=== PATIENT | male | born 1985 | race Two or more races ===

== ENCOUNTER 2017-03-21 18:11 | Inpatient (IN) | payer OTHER ==
[~2017-03-21] VITALS: Ht 162.6 cm; Wt 91.8 kg
[~2017-03-21 18:11] MED LIST: AMLO10TA4 PO; AMOX1TAB61 PO; APIX5TAB PO; HYDR-2679 PO; METR500T8 PO; OMEP20CA9 PO; ONDA4TAB10 SL; OXYC-323 PO; PROP10TA PO; PROP150T2 PO
[2017-03-21] MEDS ORDERED: IV NORMAL SALINE 1000ML BAG 1,000 ML IV SCH (19:40)
[2017-03-21 19:55] LABS: BASO # 0.1 x10^3/uL (0.0-0.2); BASO % 0 % (0-3); EOS % 0 % (0-3); HEMATOCRIT 48.9 % (39.0-53.0); HEMOGLOBIN 17.1 g/dL (13.0-17.5); LYMPH # 1.5 x10^3/uL (1.0-4.8); LYMPH % 11 % (24-48); MEAN CORPUSCULAR HEMOGLOBIN 29 pg (25-35); MEAN CORPUSCULAR HGB CONC 35 g/dL (31-37); MEAN CORPUSCULAR VOLUME 84 fL (79-100); MONO % 3 % (0-9); NEUT % 85 % (31-73); PLATELET COUNT 235 x10^3/uL (140-400); RED BLOOD COUNT 5.81 x10^6/uL (4.30-5.70); RED CELL DISTRIBUTION WIDTH 12.2 % (11.5-14.5); WHITE BLOOD COUNT 13.1 x10^3/uL (4.0-11.0)
[2017-03-21] MEDS ORDERED: KETOROLAC TROMETHAMINE 30 MG/ML INJ. IV ONE (20:00)
[2017-03-21] MEDS ORDERED: ONDANSETRON PF 4 MG/2 ML VIAL. IV ONE (20:00)
[2017-03-21] MEDS ORDERED: PANTOPRAZOLE 40 MG TABLET.DR. PO ONE (20:00)
[2017-03-21] MEDS ORDERED: IV NORMAL SALINE 1000ML BAG 1,000 ML IV ONE ×2 (20:00→22:15)
--- NOTE | 2017-03-21 20:07 | PHYS DOC ---
Past Medical History Past Medical History: A-Fib, High Cholesterol, Hypertension, Other Additional Past Medical Histor: gastritis, ruptured colon Past Surgical History: Other Additional Past Surgical Histo: sigmoid colon removed, ileostomy reversal Alcohol Use: None Drug Use: None Adult General Chief Complaint Chief Complaint: ABDOMINAL PAIN HPI HPI 31-year-old male with a history of atrial fibrillation previously anticoagulated currently on aspirin only, also with a history of high blood pressure and high cholesterol, also with a history of a prior colon surgery with colostomy placement after surgical treatment for infection which was later reversed. Patient now presents to the emergency department complaining of epigastric burning which he has had previously and been diagnosed with gastritis. He reports some mild nausea. Pain is reproducible when he presses on his upper abdomen. Remainder of his abdomen does not hurt and he has no flank pain. Normal bowel and bladder habits. No blood in stool. States he has perceives some palpitations over the last day. Patient is only on aspirin for his history of atrial fibrillation. As far as patient knows he has not recently been in atrial fibrillation. Denies chest pain or shortness of breath. Review of Systems Review of Systems Constitutional: Denies fever or chills [] Eyes: Denies change in visual acuity, redness, or eye pain [] HENT: Denies nasal congestion or sore throat [] Respiratory: Denies cough or shortness of breath [] Cardiovascular: No additional information not addressed in HPI [] GI: Denies abdominal pain, nausea, vomiting, bloody stools or diarrhea [] : Denies dysuria or hematuria [] Musculoskeletal: Denies back pain or joint pain [] Integument: Denies rash or skin lesions [] Neurologic: Denies headache, focal weakness or sensory changes [] Endocrine: Denies polyuria or polydipsia [] Current Medications Current Medications Current Medications Medications (Trade) Dose Ordered Sig/Tanesha Start Time Stop Time Status Last Admin Dose Admin Info (Do NOT chart on this entry -- for MONITORING) 1 each PRN DAILY PRN 03/21/17 20:15 03/23/17 20:14 Iohexol (Omnipaque 300 Mg/ml) 75 ml 1X ONCE 03/21/17 20:15 03/21/17 20:16 DC 03/21/17 20:48 75 ML Ketorolac Tromethamine (Toradol) 30 mg 1X ONCE 03/21/17 20:00 8/21/17 20:03 DC 03/21/17 20:12 30 MG Lorazepam (Ativan) 1 mg 1X ONCE 03/21/17 20:15 03/21/17 20:16 DC 03/21/17 20:12 1 MG Ondansetron HCl (Zofran) 4 mg 1X ONCE 03/21/17 20:00 03/21/17 20:03 DC 03/21/17 20:11 4 MG Pantoprazole Sodium (Protonix) 40 mg 1X ONCE 03/21/17 20:00 03/21/17 20:03 DC 03/21/17 20:36 40 MG Sodium Chloride 1,000 ml @ 1,000 mls/hr 1X ONCE 03/21/17 22:15 03/21/17 23:14 DC 03/21/17 21:58 1,000 MLS/HR Allergies Allergies Allergies Coded Allergies Type Severity Reaction Last Updated Verified No Known Drug Allergies 09/18/15 No Physical Exam Physical Exam Well-appearing 31-year-old male in no acute distress. Clear lungs irregularly irregular rhythm with mild intermittent tachycardia. Heart rate varies from upper 90s to approximately 110 irregular as stated. Clear lungs. Normal bowel sounds. Mild epigastric tenderness without guarding or rebound. No right upper quadrant tenderness. No CVA tenderness. Remainder of exam is nondistended with no mass or megaly and no focal tenderness. Skin changes. Extremities benign Constitutional: Well developed, well nourished, no acute distress, non-toxic appearance. [] HENT: Normocephalic, atraumatic, bilateral external ears normal, oropharynx moist, no oral exudates, nose normal. [] Eyes: PERRLA, EOMI, conjunctiva normal, no discharge. [] Neck: Normal range of motion, no tenderness, supple, no stridor. [] Cardiovascular:Heart rate regular rhythm, no murmur [] Lungs & Thorax: Bilateral breath sounds clear to auscultation [] Abdomen: Bowel sounds normal, soft, exam as above no masses, no pulsatile masses. [] Skin: Warm, dry, no erythema, no rash. [] Back: No tenderness, no CVA tenderness. [] Extremities: No tenderness, no cyanosis, no clubbing, ROM intact, no edema. [] Neurologic: Alert and oriented X 3, normal motor function, normal sensory function, no focal deficits noted. [] Psychologic: Affect normal, judgement normal, mood normal. [] Current Patient Data Vital Signs Vital Signs Date Time Temp Pulse Resp B/P (MAP) Pulse Ox O2 Delivery O2 Flow Rate FiO2 03/21/17 22:00 90 130/84 (99) 93 Nasal Cannula 2.0 03/21/17 21:15 20 03/21/17 18:46 98.4 98.4 Lab Values Laboratory Tests Test 03/21/17 19:01 03/21/17 19:40 White Blood Count 13.1 x10^3/uL (4.0-11.0) H Red Blood Count 5.81 x10^6/uL (4.30-5.70) H Hemoglobin 17.1 g/dL (13.0-17.5) Hematocrit 48.9 % (39.0-53.0) Mean Corpuscular Volume 84 fL (79-100) Mean Corpuscular Hemoglobin 29 pg (25-35) Mean Corpuscular Hemoglobin Concent 35 g/dL (31-37) Red Cell Distribution Width 12.2 % (11.5-14.5) Platelet Count 235 x10^3/uL (140-400) Neutrophils (%) (Auto) 85 % (31-73) H Lymphocytes (%) (Auto) 11 % (24-48) L Monocytes (%) (Auto) 3 % (0-9) Eosinophils (%) (Auto) 0 % (0-3) Basophils (%) (Auto) 0 % (0-3) Neutrophils # (Auto) 11.1 x10^3uL (1.8-7.7) H Lymphocytes # (Auto) 1.5 x10^3/uL (1.0-4.8) Monocytes # (Auto) 0.5 x10^3/uL (0.0-1.1) Eosinophils # (Auto) 0.0 x10^3/uL (0.0-0.7) Basophils # (Auto) 0.1 x10^3/uL (0.0-0.2) Sodium Level 141 mmol/L (136-145) Potassium Level 4.0 mmol/L (3.5-5.1) Chloride Level 103 mmol/L (98-107) Carbon Dioxide Level 26 mmol/L (21-32) Anion Gap 12 (6-14) Blood Urea Nitrogen 7 mg/dL (8-26) L Creatinine 0.9 mg/dL (0.7-1.3) Estimated GFR (Cockcroft-Gault) 97.2 BUN/Creatinine Ratio 8 (6-20) Glucose Level 148 mg/dL (70-99) H Calcium Level 9.6 mg/dL (8.5-10.1) Total Bilirubin 0.8 mg/dL (0.2-1.0) Aspartate Amino Transferase (AST) 24 U/L (15-37) Alanine Aminotransferase (ALT) 39 U/L (16-63) Alkaline Phosphatase 90 U/L (46-116) Troponin I Quantitative < 0.017 ng/mL (0.000-0.055) Total Protein 8.5 g/dL (6.4-8.2) H Albumin 4.3 g/dL (3.4-5.0) Albumin/Globulin Ratio 1.0 (1.0-1.7) Lipase 267 U/L (73-393) Urine Collection Type Unknown Urine Color Yellow Urine Clarity Clear Urine pH 6.5 Urine Specific [place] >=1.030 Urine Protein 30 mg/dL (NEG-TRACE) Urine Glucose (UA) Negative mg/dL (NEG) Urine Ketones (Stick) Negative mg/dL (NEG) Urine Blood Negative (NEG) Urine Nitrite Negative (NEG) Urine Bilirubin Negative (NEG) Urine Urobilinogen Dipstick 0.2 mg/dL (0.2 mg/dL) Urine Leukocyte Esterase Negative (NEG) Urine RBC 0 /HPF (0-2) Urine WBC Occ /HPF (0-4) Urine Squamous Epithelial Cells Few /LPF Urine Bacteria 0 /HPF (0-FEW) Urine Mucus Mod /LPF Laboratory Tests 03/21/17 19:01 Laboratory Tests 03/21/17 19:01 EKG EKG Atrial fibrillation with ventricular rate at 91. Left axis deviation nonspecific ST and T-wave findings. No STEMI. Interpreted by me. [] Radiology/Procedures Radiology/Procedures [] Course & Med Decision Making Course & Med Decision Making Pertinent Labs and Imaging studies reviewed. (See chart for details) Patient with recurrence of A. fib with known history of atrial fibrillation. Signs and symptoms consistent with manifestations of gastritis and known history for this patient as well. Clinical findings not just of of surgical abdomen on exam. Full workup pending including labs and CT as well as cardiac workup. IV fluids Toradol and Zofran administered. We'll follow clinically field lab and radiologic results and correlate clinically for disposition. She clinically stable after treatment. CT with suggestion of bowel obstruction. Patient with no active vomiting and pain well controlled. Blood cell count mildly elevated at 13.1. Discussed with admitting physician is aware of history and findings and agrees with inpatient admission. Vital signs stable Patient with recurrence of atrial fibrillation without significant RVR. Admitting M.D. aware and will address further workup, consultation, and treatment as needed. Dragon Disclaimer Dragon Disclaimer This electronic medical record was generated, in whole or in part, using a voice recognition dictation system. Departure Departure Impression: Primary Impression: Abdominal pain Additional Impressions: Paroxysmal atrial fibrillation Gastritis Referrals: NO PCP (PCP) Problem Qualifiers LIDIA PEREZ MD Mar 21, 2017 20:07
[2017-03-21 20:11] LABS: CALCIUM 9.6 mg/dL (8.5-10.1); CREATININE 0.9 mg/dL (0.7-1.3); GFR 97.2
[2017-03-21] MEDS ORDERED: CONTRAST GIVEN MC PRN (20:15)
[2017-03-21] MEDS ORDERED: IOHEXOL 300 MG/ML 75 ML VIAL IV ONE (20:15)
[2017-03-21 20:24] LABS: ALBUMIN 4.3 g/dL (3.4-5.0); TOTAL BILIRUBIN 0.8 mg/dL (0.2-1.0); TOTAL PROTEIN 8.5 g/dL (6.4-8.2)
--- NOTE | 2017-03-21 21:15 | RAD ---
Indication: Abdominal pain. Technique: Axial images and coronal and sagittal reformatted images are provided. 60 mL of intravenous Omnipaque 300 was administered without complication. Comparison is from November 23, 2015. One or more of the following individualized dose reduction techniques were utilized for this examination: 1. Automated exposure control 2. Adjustment of the mA and/or kV according to patient size 3. Use of iterative reconstruction technique Findings: There is dependent atelectasis. There is no pleural effusion. The heart is not enlarged. Liver is unremarkable. 4 mm hyperdensity within the gallbladder lumen could represent small stone or polyp. Spleen is not enlarged. Pancreas and adrenals are unremarkable. Kidneys are symmetrically perfused. Aorta is normal caliber. Lack of oral contrast limits evaluation of bowel. There is a dilated bowel loop noted near the anastomotic suture line with small bowel feces sign. This loop measures up to 4 cm in diameter. Normal appendix is noted. Colon is grossly unremarkable. Mesenteric soft tissue density noted on prior study near the anastomotic suture line has resolved. Bladder is unremarkable. Prostate is not enlarged. Bony structures appear intact. IMPRESSION: Dilated small bowel loop at the anastomotic suture line may be related to obstruction at the anastomosis. Presence of fecal material within this dilated small bowel loop is compatible with stasis. Electronically signed by: Corbin Fermin MD (03/21/2017 9:12 PM) [facility]
[2017-03-21 21:23] LABS: BILIRUBIN,URINE NEGATIVE (NEG); GLUCOSE,URINE NEGATIVE (NEG); NITRITE,URINE NEGATIVE (NEG); PH,URINE 6.5; PROTEIN,URINE 30 mg/dL (NEG-TRACE); UROBILINOGEN,URINE 0.2 mg/dL (0.2 mg/dL)
[2017-03-21 21:47] LABS: BACTERIA,URINE 0 /HPF (0-FEW); RBC,URINE 0 /HPF (0-2); SQUAMOUS EPITHELIAL CELL,UR FEW /LPF; WBC,URINE OCC /HPF (0-4)
[2017-03-21 23:20] VITALS: BP 150/98
[2017-03-22] MEDS ORDERED: MORPHINE SULFATE 4 MG/ML DISP.SYRIN. IV PRN
[2017-03-22] MEDS ORDERED: ONDANSETRON PF 4 MG/2 ML VIAL. IV PRN
[2017-03-22] MEDS: HYDROcodone/APAP 5/325MG 1 TAB TABLET PO PRN ×6 (00:05→23:26)
--- NOTE | 2017-03-22 01:28 | ACF ---
Admission Forms Criteria ABDOMINAL PAIN Clinical Indications for Admission to Inpatient Care ( te-moak/check or initial the applicable condition/criteria): Admission is indicated for ANY ONE of the following (1)(2)(3)(4)(5)(6): [ ]I. Surgery needed that cannot be performed on ambulatory basis [ ]II. Peritoneal signs present (eg, rebound tenderness, rigidity) [ ]III. Evaluation requires patient to not eat or drink for extended period ( eg, more than 24 hours). [X]IV. Inpatient admission required[B] rather than observation care (see Abdominal Pain: Observation Care guideline as appropriate) because of ANY ONE of the following(7)(8)(9): [ ] a) Hemodynamic instability [ ]b) Severe pain requiring acute inpatient management [X]c) Identification of etiology or finding that requires inpatient care (eg, aortic dissection, free air,bowel ischemia)(10) [ ]d) Absent bowel sounds with complete ileus (11) [ ]e) Signs of intestinal obstruction[C] [ ]f) Suspected toxic megacolon [ ]g) Severe electrolyte abnormalities requiring inpatient care [ ]h) High fever or infection requiring inpatient admission as indicated by ANY ONE of the following (12)(13): [ ]i) Appropriate outpatient or observation care antimicrobial treatment unavailable, not effective, or not feasible [ ]ii) Documented bacteremia [ ]iii) Temperature greater than 104.9 degrees F (40.5 degrees C) (oral) [ ]iv) Temperature greater than 103.1 degrees F (39.5 degrees C) ( oral) or less than 96.8 degrees F (36 degrees C) (rectal) that does not respond to all emergency treatment measures [ ]i) IV fluid required rather than oral rehydration to replace significant ongoing (eg, for greater than 24 hours) losses (greater than 3 L/m2 per day)(14)(15) [ ]j) Percutaneous or open drainage (eg, abscess, biliary tract) procedures [ ]k) Parenteral nutrition regimen that must be implemented on inpatient basis [ ]l) Other condition, treatment, or monitoring requiring inpatient admission Extended stay beyond goal length of stay may be needed for (1)(3)(4)(10)(16): [ ]a) Surgery (e.g., colectomy, revascularization procedure) [ ]b) Persistent abdominal pain with suspected intra-abdominal process [ ]c) Diagnosed condition requiring continued stay (e.g., pancreatitis, complicated diverticulitis) The original [facility] content created by [facility] has been revised. The portions of the content which have been revised are identified through the use of italic text, and [facility] has neither reviewed nor approved the modified material.All other unmodified content is copyright [facility]. Please see references footnoted in the original [facility] edition 2015 Admission Criteria Met?: Yes ALFREDO YANES Mar 22, 2017 01:28
[2017-03-22 03:35] VITALS: BP 134/85
[2017-03-22] MEDS ORDERED: [no home meds] (06:25)
[2017-03-22 07:15] VITALS: BP 139/97
--- NOTE | 2017-03-22 07:42 | RAD ---
Exam performed: One view chest. Indication: palpitations, epigastric pain Date of Service: 03/21/2017 9:52 PM Comparison: Single view chest as part of acute abdominal series from 11/23/15 Single AP upright portable view chest findings: Cardiomediastinal silhouette is within upper limits of normal. No acute infiltrates, effusion or pneumothorax is detected. The bony structures are normal. Impression: No acute cardiopulmonary process is detected.
--- NOTE | 2017-03-22 08:44 | EKG ---
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
[2017-03-22] MEDS ORDERED: LOPERAMIDE 2 MG CAPSULE PO PRN (09:00)
--- NOTE | 2017-03-22 10:17 | PDOC2 ---
GI CONSULT Reason For Consult: SBO HPI: HPI: 31 y/o male w/ a variety of GI symptoms. Woke up yesterday not feeling right. Had a few formed stools throughout the day, took Pepto and left work early. N/ v w/ epigastric/RUQ discomfort. "It feels like hollow pain - like gastritis." Similar ?intermittent obstructive symptoms in the past, h/o sigmoid perforation w. resection and loop ileostomy/reversal (Dr. Barros), previous colonoscopy by Dr. Das. Taking a hot bath/shower helps. Says rarely uses, but marijuana also helps. No previous EGD, only occasional heartburn. No regular NSAID use. Labs unrevealing. CT A/P w/ dilated small bowel loop at the anastomotic suture line and presence of fecal material within. Feeling a little better this morning, tolerating clears and passing gas. PMH: PMH: A Fib, HTN, HLD, diverticular disease w/ sigmoid perforation w/ resection and loop ileostomy/reversal FH: Family History: No pertinent hx Social History: Smoke: No ALCOHOL: none Drugs: Marijuana, Other ROS: GEN: Denies fevers, chills, sweats HEENT: Denies blurred vision, sore throat CV: Denies chest pain RESP: Denies shortness of air, cough GI: Per HPI : Denies hematuria, dysuria ENDO: Denies weight changes NEURO: Denies confusion, dizziness MSK: Denies weakness, joint pain/swelling SKIN: Denies jaundice, pruritus Vitals: Vitals: Vital Signs Date Time Temp Pulse Resp B/P (MAP) Pulse Ox O2 Delivery O2 Flow Rate FiO2 03/22/17 09:30 98 Room Air 2.0 03/22/17 07:15 98.0 76 20 139/97 (111) 98.0 Labs: Labs: Laboratory Tests Test 03/21/17 19:01 03/21/17 19:40 White Blood Count 13.1 x10^3/uL (4.0-11.0) Red Blood Count 5.81 x10^6/uL (4.30-5.70) Hemoglobin 17.1 g/dL (13.0-17.5) Hematocrit 48.9 % (39.0-53.0) Mean Corpuscular Volume 84 fL (79-100) Mean Corpuscular Hemoglobin 29 pg (25-35) Mean Corpuscular Hemoglobin Concent 35 g/dL (31-37) Red Cell Distribution Width 12.2 % (11.5-14.5) Platelet Count 235 x10^3/uL (140-400) Neutrophils (%) (Auto) 85 % (31-73) Lymphocytes (%) (Auto) 11 % (24-48) Monocytes (%) (Auto) 3 % (0-9) Eosinophils (%) (Auto) 0 % (0-3) Basophils (%) (Auto) 0 % (0-3) Neutrophils # (Auto) 11.1 x10^3uL (1.8-7.7) Lymphocytes # (Auto) 1.5 x10^3/uL (1.0-4.8) Monocytes # (Auto) 0.5 x10^3/uL (0.0-1.1) Eosinophils # (Auto) 0.0 x10^3/uL (0.0-0.7) Basophils # (Auto) 0.1 x10^3/uL (0.0-0.2) Sodium Level 141 mmol/L (136-145) Potassium Level 4.0 mmol/L (3.5-5.1) Chloride Level 103 mmol/L (98-107) Carbon Dioxide Level 26 mmol/L (21-32) Anion Gap 12 (6-14) Blood Urea Nitrogen 7 mg/dL (8-26) Creatinine 0.9 mg/dL (0.7-1.3) Estimated GFR (Cockcroft-Gault) 97.2 BUN/Creatinine Ratio 8 (6-20) Glucose Level 148 mg/dL (70-99) Calcium Level 9.6 mg/dL (8.5-10.1) Total Bilirubin 0.8 mg/dL (0.2-1.0) Aspartate Amino Transf (AST/SGOT) 24 U/L (15-37) Alanine Aminotransferase (ALT/SGPT) 39 U/L (16-63) Alkaline Phosphatase 90 U/L (46-116) Troponin I Quantitative < 0.017 ng/mL (0.000-0.055) Total Protein 8.5 g/dL (6.4-8.2) Albumin 4.3 g/dL (3.4-5.0) Albumin/Globulin Ratio 1.0 (1.0-1.7) Lipase 267 U/L (73-393) Urine Collection Type Unknown Urine Color Yellow Urine Clarity Clear Urine pH 6.5 Urine Specific [place] >=1.030 Urine Protein 30 mg/dL (NEG-TRACE) Urine Glucose (UA) Negative mg/dL (NEG) Urine Ketones (Stick) Negative mg/dL (NEG) Urine Blood Negative (NEG) Urine Nitrite Negative (NEG) Urine Bilirubin Negative (NEG) Urine Urobilinogen Dipstick 0.2 mg/dL (0.2 mg/dL) Urine Leukocyte Esterase Negative (NEG) Urine RBC 0 /HPF (0-2) Urine WBC Occ /HPF (0-4) Urine Squamous Epithelial Cells Few /LPF Urine Bacteria 0 /HPF (0-FEW) Urine Mucus Mod /LPF Allergies: Coded Allergies: No Known Drug Allergies (Unverified , 09/18/15) Medications: Current Medications Medications (Trade) Dose Ordered Sig/Tanesha Route PRN Reason Start Time Stop Time Status Last Admin Dose Admin Sodium Chloride 1,000 ml @ 0 mls/hr Q10H IV 03/21/17 19:40 03/21/17 19:59 DC 03/21/17 19:59 Ketorolac Tromethamine (Toradol) 30 mg 1X ONCE IV 03/21/17 20:00 03/21/17 20:03 DC 03/21/17 20:12 Ondansetron HCl (Zofran) 4 mg 1X ONCE IV 03/21/17 20:00 03/21/17 20:03 DC 03/21/17 20:11 Pantoprazole Sodium (Protonix) 40 mg 1X ONCE PO 03/21/17 20:00 03/21/17 20:03 DC 03/21/17 20:36 Sodium Chloride 1,000 ml @ 0 mls/hr 1X ONCE IV 03/21/17 20:00 03/21/17 20:03 DC 03/21/17 20:00 Iohexol (Omnipaque 300 Mg/ml) 75 ml 1X ONCE IV 03/21/17 20:15 03/21/17 20:16 DC 03/21/17 20:48 Lorazepam (Ativan) 1 mg 1X ONCE IV 03/21/17 20:15 03/21/17 20:16 DC 03/21/17 20:12 Sodium Chloride 1,000 ml @ 1,000 mls/hr 1X ONCE IV 03/21/17 22:15 03/21/17 23:14 DC 03/21/17 21:58 Acetaminophen/ Hydrocodone Bitart (Lortab 5/325) 1 tab PRN Q4HRS PRN PO MODERATE PAIN 03/22/17 00:00 03/22/17 04:08 Ondansetron HCl (Zofran) 4 mg PRN Q6HRS PRN IV NAUSEA/VOMITING 03/22/17 00:00 03/22/17 04:12 Morphine Sulfate 2 mg PRN Q2HR PRN IV SEVERE PAIN 03/22/17 00:00 03/22/17 08:45 Imaging: Imaging: CT A/P w/ IV contrast 03/21/17 IMPRESSION: Dilated small bowel loop at the anastomotic suture line may be related to obstruction at the anastomosis. Presence of fecal material within this dilated small bowel loop is compatible with stasis. CXR 03/21/17 Impression: No acute cardiopulmonary process is detected. SBS 10/04/15 Impression: No definite abnormality seen in the Barium meal follow through exam. PE: GEN: NAD HEENT: Atraumatic, PERRL LUNGS: CTAB anteriorly HEART: irregularly irregular ABD: +loud BS, S/ND, perhaps mild epigastric discomfort EXTREMITY: No edema SKIN: No rashes, no jaundice NEURO/PSYCH: A & O 3 A/P: A/P: Upper abd discomfort, n/v, change in bowel habits H/o sigmoid resection w/ ileostomy/takedown Abnormal CT -dilated small bowel loop at the anastomotic suture line and presence of fecal material within -- Reviewed w/ Dr. Das, check SBS. Empiric PPI. Will review office records. JAYLAN JOHN Mar 22, 2017 10:17
[2017-03-22] MEDS ORDERED: BARIUM SULFATE 60% 355 ML SUSP PO ONE (10:30)
--- NOTE | 2017-03-22 10:42 | PDOC1 ---
History and Physical Date of Admission Date of Admission DATE: 03/22/17 TIME: 10:34 Identification/Chief Complaint Chief Complaint abd pain Problems: Source Source: Caregiver, Chart review, Patient History of Present Illness History of Present Illness 31 y.o male with hx of bowel obstruction yrs ago, needed ex lap by GS and ostomy which has been taken down yrs ago, comes in bec of severe abd pain he claims, epigastric some looses stools, no real emesis but had nausea, no fevers , no recent travel, denies recent sick contacts with similar sxs or recent intake of suspicious foods, CTa bd shows maybe partial SBO? but could be related to his abd sx in past. Pt actually is non toxic, belly soft, eager to try more food, WBC barely up, GI has seen for small bowel series, Also hx atrial fib, Dr. Rissa was his cards, was taken off expensive OAC bec he did not need it, NOw atrial fib but rate controlled, denies sxs,. NOt on any home meds prior to admit, VS ok Stool onCT - he claims he moved already his bowels Past Medical History Cardiovascular: AFIB, HTN, Hyperlipidemia Pulmonary: Other Past Surgical History Past Surgical History: Colon Resection, Other Family History Family History: Hypertension Social History Smoke: No ALCOHOL: none Drugs: Marijuana, Other Current Problem List Problem List Problems Medical Problems: (1) Abdominal pain Status: Acute (2) Gastritis Status: Acute (3) Paroxysmal atrial fibrillation Status: Acute Problems: Current Medications Current Medications Current Medications Sodium Chloride 1,000 ml @ 0 mls/hr Q10H IV Last administered on 03/21/17 19: 59; Start 03/21/17 at 19:40; Stop 03/21/17 at 19:59; Status DC Ketorolac Tromethamine (Toradol) 30 mg 1X ONCE IV Last administered on 20:12; Start 03/21/17 at 20:00; Stop 03/21/17 at 20:03; Status DC Ondansetron HCl (Zofran) 4 mg 1X ONCE IV Last administered on 03/21/17 20:11 ; Start 03/21/17 at 20:00; Stop 03/21/17 at 20:03; Status DC Pantoprazole Sodium (Protonix) 40 mg 1X ONCE PO Last administered on 20:36; Start 03/21/17 at 20:00; Stop 03/21/17 at 20:03; Status DC Sodium Chloride 1,000 ml @ 0 mls/hr 1X ONCE IV Last administered on 20:00; Start 03/21/17 at 20:00; Stop 03/21/17 at 20:03; Status DC Iohexol (Omnipaque 300 Mg/ml) 75 ml 1X ONCE IV Last administered on 03/21/17 20:48; Start 03/21/17 at 20:15; Stop 03/21/17 at 20:16; Status DC Lorazepam (Ativan) 1 mg 1X ONCE IV Last administered on 03/21/17 20:12; Start 03/21/17 at 20:15; Stop 03/21/17 at 20:16; Status DC Info (Do NOT chart on this entry -- for MONITORING) 1 each PRN DAILY PRN MC SEE COMMENTS; Start 03/21/17 at 20:15; Stop 03/23/17 at 20:14 Sodium Chloride 1,000 ml @ 1,000 mls/hr 1X ONCE IV Last administered on 21:58; Start 03/21/17 at 22:15; Stop 03/21/17 at 23:14; Status DC Acetaminophen/ Hydrocodone Bitart (Lortab 5/325) 1 tab PRN Q4HRS PRN PO MODERATE PAIN Last administered on 03/22/17 04:08; Start 03/22/17 at 00:00 Ondansetron HCl (Zofran) 4 mg PRN Q6HRS PRN IV NAUSEA/VOMITING Last administered on 03/22/17 04:12; Start 03/22/17 at 00:00 Morphine Sulfate 2 mg PRN Q2HR PRN IV SEVERE PAIN Last administered on 08:45; Start 03/22/17 at 00:00 Loperamide HCl (Imodium) 2 mg PRN Q15MIN PRN PO DIARRHEA; Start 03/22/17 at 09: 00 Pantoprazole Sodium (Protonix) 40 mg DAILYAC PO ; Start 03/23/17 at 07:30 Barium Sulfate (Liquid E-Z Paque) 710 ml 1X ONCE PO ; Start 03/22/17 at 10:30; Stop 03/22/17 at 10:31; Status DC Active Scripts Active Reported [[no home meds]] Allergies Allergies: Coded Allergies: No Known Drug Allergies (Unverified , 09/18/15) ROS Review of System as per HPI, all else is neg 14 pt reviewed Physical Exam General: Alert, Oriented X3, Cooperative, No acute distress HEENT: Atraumatic Lungs: Clear to auscultation Heart: S1S2, RRR, no thrills, no rubs, no gallops, no murmurs Cardiovascular: S1, S2 Abdomen: Normal bowel sounds, Soft, No tenderness, No hepatosplenomegaly, No masses Male Genitals Exam: normal genitalia, normal prostate Rectal Exam: not examined Extremities: No clubbing, No cyanosis, No edema, Normal pulses, No tenderness/ swelling Skin: No rashes, No breakdown, No significant lesion Neuro: Normal gait, Normal speech, Strength at 5/5 X4 ext, Normal tone, Sensation intact, Cranial nerves 3-12 NL, Reflexes 2+ Psych/Mental Status: Mental status NL, Mood NL Vitals Vitals Vital Signs Date Time Temp Pulse Resp B/P (MAP) Pulse Ox O2 Delivery O2 Flow Rate FiO2 03/22/17 09:30 98 Room Air 2.0 03/22/17 07:15 98.0 76 20 139/97 (111) 98.0 Labs Labs Laboratory Tests Test 03/21/17 19:01 03/21/17 19:40 White Blood Count 13.1 x10^3/uL (4.0-11.0) Red Blood Count 5.81 x10^6/uL (4.30-5.70) Hemoglobin 17.1 g/dL (13.0-17.5) Hematocrit 48.9 % (39.0-53.0) Mean Corpuscular Volume 84 fL (79-100) Mean Corpuscular Hemoglobin 29 pg (25-35) Mean Corpuscular Hemoglobin Concent 35 g/dL (31-37) Red Cell Distribution Width 12.2 % (11.5-14.5) Platelet Count 235 x10^3/uL (140-400) Neutrophils (%) (Auto) 85 % (31-73) Lymphocytes (%) (Auto) 11 % (24-48) Monocytes (%) (Auto) 3 % (0-9) Eosinophils (%) (Auto) 0 % (0-3) Basophils (%) (Auto) 0 % (0-3) Neutrophils # (Auto) 11.1 x10^3uL (1.8-7.7) Lymphocytes # (Auto) 1.5 x10^3/uL (1.0-4.8) Monocytes # (Auto) 0.5 x10^3/uL (0.0-1.1) Eosinophils # (Auto) 0.0 x10^3/uL (0.0-0.7) Basophils # (Auto) 0.1 x10^3/uL (0.0-0.2) Sodium Level 141 mmol/L (136-145) Potassium Level 4.0 mmol/L (3.5-5.1) Chloride Level 103 mmol/L (98-107) Carbon Dioxide Level 26 mmol/L (21-32) Anion Gap 12 (6-14) Blood Urea Nitrogen 7 mg/dL (8-26) Creatinine 0.9 mg/dL (0.7-1.3) Estimated GFR (Cockcroft-Gault) 97.2 BUN/Creatinine Ratio 8 (6-20) Glucose Level 148 mg/dL (70-99) Calcium Level 9.6 mg/dL (8.5-10.1) Total Bilirubin 0.8 mg/dL (0.2-1.0) Aspartate Amino Transf (AST/SGOT) 24 U/L (15-37) Alanine Aminotransferase (ALT/SGPT) 39 U/L (16-63) Alkaline Phosphatase 90 U/L (46-116) Troponin I Quantitative < 0.017 ng/mL (0.000-0.055) Total Protein 8.5 g/dL (6.4-8.2) Albumin 4.3 g/dL (3.4-5.0) Albumin/Globulin Ratio 1.0 (1.0-1.7) Lipase 267 U/L (73-393) Urine Collection Type Unknown Urine Color Yellow Urine Clarity Clear Urine pH 6.5 Urine Specific [place] >=1.030 Urine Protein 30 mg/dL (NEG-TRACE) Urine Glucose (UA) Negative mg/dL (NEG) Urine Ketones (Stick) Negative mg/dL (NEG) Urine Blood Negative (NEG) Urine Nitrite Negative (NEG) Urine Bilirubin Negative (NEG) Urine Urobilinogen Dipstick 0.2 mg/dL (0.2 mg/dL) Urine Leukocyte Esterase Negative (NEG) Urine RBC 0 /HPF (0-2) Urine WBC Occ /HPF (0-4) Urine Squamous Epithelial Cells Few /LPF Urine Bacteria 0 /HPF (0-FEW) Urine Mucus Mod /LPF Laboratory Tests Test 03/21/17 19:01 03/21/17 19:40 White Blood Count 13.1 x10^3/uL (4.0-11.0) Red Blood Count 5.81 x10^6/uL (4.30-5.70) Hemoglobin 17.1 g/dL (13.0-17.5) Hematocrit 48.9 % (39.0-53.0) Mean Corpuscular Volume 84 fL (79-100) Mean Corpuscular Hemoglobin 29 pg (25-35) Mean Corpuscular Hemoglobin Concent 35 g/dL (31-37) Red Cell Distribution Width 12.2 % (11.5-14.5) Platelet Count 235 x10^3/uL (140-400) Neutrophils (%) (Auto) 85 % (31-73) Lymphocytes (%) (Auto) 11 % (24-48) Monocytes (%) (Auto) 3 % (0-9) Eosinophils (%) (Auto) 0 % (0-3) Basophils (%) (Auto) 0 % (0-3) Neutrophils # (Auto) 11.1 x10^3uL (1.8-7.7) Lymphocytes # (Auto) 1.5 x10^3/uL (1.0-4.8) Monocytes # (Auto) 0.5 x10^3/uL (0.0-1.1) Eosinophils # (Auto) 0.0 x10^3/uL (0.0-0.7) Basophils # (Auto) 0.1 x10^3/uL (0.0-0.2) Sodium Level 141 mmol/L (136-145) Potassium Level 4.0 mmol/L (3.5-5.1) Chloride Level 103 mmol/L (98-107) Carbon Dioxide Level 26 mmol/L (21-32) Anion Gap 12 (6-14) Blood Urea Nitrogen 7 mg/dL (8-26) Creatinine 0.9 mg/dL (0.7-1.3) Estimated GFR (Cockcroft-Gault) 97.2 BUN/Creatinine Ratio 8 (6-20) Glucose Level 148 mg/dL (70-99) Calcium Level 9.6 mg/dL (8.5-10.1) Total Bilirubin 0.8 mg/dL (0.2-1.0) Aspartate Amino Transf (AST/SGOT) 24 U/L (15-37) Alanine Aminotransferase (ALT/SGPT) 39 U/L (16-63) Alkaline Phosphatase 90 U/L (46-116) Troponin I Quantitative < 0.017 ng/mL (0.000-0.055) Total Protein 8.5 g/dL (6.4-8.2) Albumin 4.3 g/dL (3.4-5.0) Albumin/Globulin Ratio 1.0 (1.0-1.7) Lipase 267 U/L (73-393) Urine Collection Type Unknown Urine Color Yellow Urine Clarity Clear Urine pH 6.5 Urine Specific [place] >=1.030 Urine Protein 30 mg/dL (NEG-TRACE) Urine Glucose (UA) Negative mg/dL (NEG) Urine Ketones (Stick) Negative mg/dL (NEG) Urine Blood Negative (NEG) Urine Nitrite Negative (NEG) Urine Bilirubin Negative (NEG) Urine Urobilinogen Dipstick 0.2 mg/dL (0.2 mg/dL) Urine Leukocyte Esterase Negative (NEG) Urine RBC 0 /HPF (0-2) Urine WBC Occ /HPF (0-4) Urine Squamous Epithelial Cells Few /LPF Urine Bacteria 0 /HPF (0-FEW) Urine Mucus Mod /LPF VTE Prophylaxis Ordered VTE Prophylaxis Devices: Yes VTE Pharmacological Prophylaxi: Yes Assessment/Plan Assessment/Plan 1. Abd pain likely GAstroenteritis, non toxic appearing, labs not impressive - await small bowel series, otherwise can ADAT 2. Intermittent Atrial fib MVR - consult cards, may check TSH, did explain sometimes that even gastritis can push someone to atrial fib, so fa rate is controlled 3. Narc seeking behavior 4. Distant hx exlap with ostomy - all taken down 5. COnstipation resolved PLAN; admit Small bowel series ADAT PAin control Consult cards re atrial fib, GI also has been consulted MAy check TSH Vivek RN PAN Meza MD Mar 22, 2017 10:42
[2017-03-22 11:10] VITALS: BP 144/97
--- NOTE | 2017-03-22 11:27 | PDOC2 ---
AMAURI VICENTE [employer] 03/22/17 1127: CONSULT Date of Consult Date of Consult DATE: 03/22/17 TIME: 11:13 Reason for Consult Reason for Consult: sbo Referring Physician Referring Physician: Dr Pettit Identification/Chief Complaint Chief Complaint abdominal pain Problems: Source Source: Chart review, Patient History of Present Illness Reason for Visit: Acute onset of epigastric pain yesterday am. Worsened after he ate his breakfast. It persisted in the afternoon and he came in for evaluation. Associated nausea and emesis. He did have a BM yesterday. He is passing gas today. Does feel better He is a previous patient of Dr Polo that underwent a sigmoid resection, ileostomy and reversal in [id number]. After his surgeries he had admissions similar to this, although never had any obstructions. I did review previous CTs and there was similar findings of small bowel dilation at the anastomosis. GI has seen and is planning SBFT today. He does have history of marijuana, history of drinking, although reports no alcohol use now. Past Medical History Cardiovascular: AFIB, HTN, Hyperlipidemia Pulmonary: Other Past Surgical History Past Surgical History: Colon Resection, Other Family History Family History: Hypertension Social History No ALCOHOL: other (denies currently, although previous records indicate use) Drugs: Marijuana, Other Lives: with Family Current Problem List Problem List Problems Medical Problems: (1) Abdominal pain Status: Acute (2) Gastritis Status: Acute (3) Paroxysmal atrial fibrillation Status: Acute Current Medications Current Medications Current Medications Sodium Chloride 1,000 ml @ 0 mls/hr Q10H IV Last administered on 03/21/17 19: 59; Start 03/21/17 at 19:40; Stop 03/21/17 at 19:59; Status DC Ketorolac Tromethamine (Toradol) 30 mg 1X ONCE IV Last administered on 20:12; Start 03/21/17 at 20:00; Stop 03/21/17 at 20:03; Status DC Ondansetron HCl (Zofran) 4 mg 1X ONCE IV Last administered on 03/21/17 20:11 ; Start 03/21/17 at 20:00; Stop 03/21/17 at 20:03; Status DC Pantoprazole Sodium (Protonix) 40 mg 1X ONCE PO Last administered on 20:36; Start 03/21/17 at 20:00; Stop 03/21/17 at 20:03; Status DC Sodium Chloride 1,000 ml @ 0 mls/hr 1X ONCE IV Last administered on 20:00; Start 03/21/17 at 20:00; Stop 03/21/17 at 20:03; Status DC Iohexol (Omnipaque 300 Mg/ml) 75 ml 1X ONCE IV Last administered on 03/21/17 20:48; Start 03/21/17 at 20:15; Stop 03/21/17 at 20:16; Status DC Lorazepam (Ativan) 1 mg 1X ONCE IV Last administered on 03/21/17 20:12; Start 03/21/17 at 20:15; Stop 03/21/17 at 20:16; Status DC Info (Do NOT chart on this entry -- for MONITORING) 1 each PRN DAILY PRN MC SEE COMMENTS; Start 03/21/17 at 20:15; Stop 03/23/17 at 20:14 Sodium Chloride 1,000 ml @ 1,000 mls/hr 1X ONCE IV Last administered on 21:58; Start 03/21/17 at 22:15; Stop 03/21/17 at 23:14; Status DC Acetaminophen/ Hydrocodone Bitart (Lortab 5/325) 1 tab PRN Q4HRS PRN PO MODERATE PAIN Last administered on 03/22/17 10:36; Start 03/22/17 at 00:00 Ondansetron HCl (Zofran) 4 mg PRN Q6HRS PRN IV NAUSEA/VOMITING Last administered on 03/22/17 04:12; Start 03/22/17 at 00:00 Morphine Sulfate 2 mg PRN Q2HR PRN IV SEVERE PAIN Last administered on 08:45; Start 03/22/17 at 00:00 Loperamide HCl (Imodium) 2 mg PRN Q15MIN PRN PO DIARRHEA; Start 03/22/17 at 09: 00 Pantoprazole Sodium (Protonix) 40 mg DAILYAC PO ; Start 03/23/17 at 07:30 Barium Sulfate (Liquid E-Z Paque) 710 ml 1X ONCE PO ; Start 03/22/17 at 10:30; Stop 03/22/17 at 10:31; Status DC Active Scripts Active Reported [[no home meds]] Allergies Allergies: Coded Allergies: No Known Drug Allergies (Unverified , 09/18/15) ROS General: YES: Chills, Appetite (low), No: Other (fevers) PSYCHOLOGICAL ROS: No: Anxiety, Depression Eyes: No Blurry vision, No Double vision HEENT: No: Heacaches, Sore Throat Hematological and Lymphatic: No: Bleeding Problems, Blood Clots Respiratory: No: Cough, Shortness of breath Cardiovascular: No Chest Pain, No Palpitations Gastrointestinal: Yes Other (see hpi) Genitourinary: No Dysuria, No Hematuria Musculoskeletal: No Joint Pain, No Muscle Pain Neurological: No Confusion, No Numbness/Tingling Skin: No Pruritus, No Rash Physical Exam General: Alert, Oriented X3, Cooperative, No acute distress HEENT: PERRLA, Mucous membr. moist/pink Lungs: Clear to auscultation, Normal air movement Heart: Regular rate, Normal S1, Normal S2, No murmurs Abdomen: Soft, Other (ND, epigastric tenderness, midline scar) Extremities: No clubbing, No cyanosis Skin: No rashes, No breakdown Neuro: Normal gait, Normal speech Psych/Mental Status: Mental status NL, Mood NL Vitals VITALS Vital Signs Date Time Temp Pulse Resp B/P (MAP) Pulse Ox O2 Delivery O2 Flow Rate FiO2 03/22/17 11:10 98.0 73 20 144/97 (113) 98 Room Air 98.0 03/22/17 09:30 2.0 Labs Labs Laboratory Tests Test 03/21/17 19:01 03/21/17 19:40 White Blood Count 13.1 x10^3/uL (4.0-11.0) Red Blood Count 5.81 x10^6/uL (4.30-5.70) Hemoglobin 17.1 g/dL (13.0-17.5) Hematocrit 48.9 % (39.0-53.0) Mean Corpuscular Volume 84 fL (79-100) Mean Corpuscular Hemoglobin 29 pg (25-35) Mean Corpuscular Hemoglobin Concent 35 g/dL (31-37) Red Cell Distribution Width 12.2 % (11.5-14.5) Platelet Count 235 x10^3/uL (140-400) Neutrophils (%) (Auto) 85 % (31-73) Lymphocytes (%) (Auto) 11 % (24-48) Monocytes (%) (Auto) 3 % (0-9) Eosinophils (%) (Auto) 0 % (0-3) Basophils (%) (Auto) 0 % (0-3) Neutrophils # (Auto) 11.1 x10^3uL (1.8-7.7) Lymphocytes # (Auto) 1.5 x10^3/uL (1.0-4.8) Monocytes # (Auto) 0.5 x10^3/uL (0.0-1.1) Eosinophils # (Auto) 0.0 x10^3/uL (0.0-0.7) Basophils # (Auto) 0.1 x10^3/uL (0.0-0.2) Sodium Level 141 mmol/L (136-145) Potassium Level 4.0 mmol/L (3.5-5.1) Chloride Level 103 mmol/L (98-107) Carbon Dioxide Level 26 mmol/L (21-32) Anion Gap 12 (6-14) Blood Urea Nitrogen 7 mg/dL (8-26) Creatinine 0.9 mg/dL (0.7-1.3) Estimated GFR (Cockcroft-Gault) 97.2 BUN/Creatinine Ratio 8 (6-20) Glucose Level 148 mg/dL (70-99) Calcium Level 9.6 mg/dL (8.5-10.1) Total Bilirubin 0.8 mg/dL (0.2-1.0) Aspartate Amino Transf (AST/SGOT) 24 U/L (15-37) Alanine Aminotransferase (ALT/SGPT) 39 U/L (16-63) Alkaline Phosphatase 90 U/L (46-116) Troponin I Quantitative < 0.017 ng/mL (0.000-0.055) Total Protein 8.5 g/dL (6.4-8.2) Albumin 4.3 g/dL (3.4-5.0) Albumin/Globulin Ratio 1.0 (1.0-1.7) Lipase 267 U/L (73-393) Urine Collection Type Unknown Urine Color Yellow Urine Clarity Clear Urine pH 6.5 Urine Specific [place] >=1.030 Urine Protein 30 mg/dL (NEG-TRACE) Urine Glucose (UA) Negative mg/dL (NEG) Urine Ketones (Stick) Negative mg/dL (NEG) Urine Blood Negative (NEG) Urine Nitrite Negative (NEG) Urine Bilirubin Negative (NEG) Urine Urobilinogen Dipstick 0.2 mg/dL (0.2 mg/dL) Urine Leukocyte Esterase Negative (NEG) Urine RBC 0 /HPF (0-2) Urine WBC Occ /HPF (0-4) Urine Squamous Epithelial Cells Few /LPF Urine Bacteria 0 /HPF (0-FEW) Urine Mucus Mod /LPF Laboratory Tests Test 03/21/17 19:01 03/21/17 19:40 White Blood Count 13.1 x10^3/uL (4.0-11.0) Red Blood Count 5.81 x10^6/uL (4.30-5.70) Hemoglobin 17.1 g/dL (13.0-17.5) Hematocrit 48.9 % (39.0-53.0) Mean Corpuscular Volume 84 fL (79-100) Mean Corpuscular Hemoglobin 29 pg (25-35) Mean Corpuscular Hemoglobin Concent 35 g/dL (31-37) Red Cell Distribution Width 12.2 % (11.5-14.5) Platelet Count 235 x10^3/uL (140-400) Neutrophils (%) (Auto) 85 % (31-73) Lymphocytes (%) (Auto) 11 % (24-48) Monocytes (%) (Auto) 3 % (0-9) Eosinophils (%) (Auto) 0 % (0-3) Basophils (%) (Auto) 0 % (0-3) Neutrophils # (Auto) 11.1 x10^3uL (1.8-7.7) Lymphocytes # (Auto) 1.5 x10^3/uL (1.0-4.8) Monocytes # (Auto) 0.5 x10^3/uL (0.0-1.1) Eosinophils # (Auto) 0.0 x10^3/uL (0.0-0.7) Basophils # (Auto) 0.1 x10^3/uL (0.0-0.2) Sodium Level 141 mmol/L (136-145) Potassium Level 4.0 mmol/L (3.5-5.1) Chloride Level 103 mmol/L (98-107) Carbon Dioxide Level 26 mmol/L (21-32) Anion Gap 12 (6-14) Blood Urea Nitrogen 7 mg/dL (8-26) Creatinine 0.9 mg/dL (0.7-1.3) Estimated GFR (Cockcroft-Gault) 97.2 BUN/Creatinine Ratio 8 (6-20) Glucose Level 148 mg/dL (70-99) Calcium Level 9.6 mg/dL (8.5-10.1) Total Bilirubin 0.8 mg/dL (0.2-1.0) Aspartate Amino Transf (AST/SGOT) 24 U/L (15-37) Alanine Aminotransferase (ALT/SGPT) 39 U/L (16-63) Alkaline Phosphatase 90 U/L (46-116) Troponin I Quantitative < 0.017 ng/mL (0.000-0.055) Total Protein 8.5 g/dL (6.4-8.2) Albumin 4.3 g/dL (3.4-5.0) Albumin/Globulin Ratio 1.0 (1.0-1.7) Lipase 267 U/L (73-393) Urine Collection Type Unknown Urine Color Yellow Urine Clarity Clear Urine pH 6.5 Urine Specific [place] >=1.030 Urine Protein 30 mg/dL (NEG-TRACE) Urine Glucose (UA) Negative mg/dL (NEG) Urine Ketones (Stick) Negative mg/dL (NEG) Urine Blood Negative (NEG) Urine Nitrite Negative (NEG) Urine Bilirubin Negative (NEG) Urine Urobilinogen Dipstick 0.2 mg/dL (0.2 mg/dL) Urine Leukocyte Esterase Negative (NEG) Urine RBC 0 /HPF (0-2) Urine WBC Occ /HPF (0-4) Urine Squamous Epithelial Cells Few /LPF Urine Bacteria 0 /HPF (0-FEW) Urine Mucus Mod /LPF Images Images CT reviewed IMPRESSION: Dilated small bowel loop at the anastomotic suture line may be related to obstruction at the anastomosis. Presence of fecal material within this dilated small bowel loop is compatible with stasis. Assessment/Plan Assessment/Plan abdominal pain, n/v sbo vs ileus vs gastritis vs PUD vs gastroenteritis Benign abdominal exam GI has plans for SBFT today will review with BJORN Messina MD 03/22/17 1259: CONSULT Allergies Allergies: Coded Allergies: No Known Drug Allergies (Unverified , 09/18/15) Assessment/Plan Assessment/Plan addendum out of his room for sbft. will f/u tomorrow. AMAURI VICENTE APRN Mar 22, 2017 11:27 BJORN POLO MD Mar 22, 2017 12:59
--- NOTE | 2017-03-22 12:33 | PDOC2 ---
MARILOU MENDEZ INVENTORY CLERK 03/22/17 1233: CARDIAC CONSULT DATE OF CONSULT Date of Consult DATE: 03/22/17 TIME: 12:18 REASON FOR CONSULT Reason for Consult: AFIB, MVR REFERRING PHYSICIAN Referring Physician: Dr. Pettit SOURCE Source: Chart review, Patient HISTORY OF PRESENT ILLNESS HISTORY OF PRESENT ILLNESS This is a 31 yo male, with a history of PAFIB in the setting of acute illness previously, who presented secondary to epigastric pain. Pain felt to be very similar to what he previously experienced with gastritis. Was noted to be back in AFIB, which prompted this consult. Patient denies any palpitations, dizziness , diaphoresis, chest pain, or SOA. Patient was previously on Propafenone and Eliquis, but stop taking over a year ago as he lost his insurance for period of time and was unable to get back in to his PCP and have medications refilled. PAST MEDICAL HISTORY Cardiovascular: AFIB (paroxysmal ), HTN, Hyperlipidemia Pulmonary: Other (OAS with CPAP) GI: Diverticulosis (diverticulitis ), GERD, Other (colitis, gastritis ) Heme/Onc: No pertinent hx Hepatobiliary: No pertinent hx Psych: No pertinent hx Rheumatologic: No pertinent hx Infectious disease: No pertinent hx ENT: No pertinent hx Renal/: No pertinent hx Endocrine: No pertinent hx Dermatology: No pertinent hx PAST SURGICAL HISTORY Past Surgical History: Colon Resection, Other (ileostomy with reversal ) FAMILY HISTORY Family History: Hypertension SOCIAL HISTORY Smoke: No ALCOHOL: none Drugs: Marijuana Lives: with Family CURRENT MEDICATIONS CURRENT MEDICATIONS Current Medications Medications (Trade) Dose Ordered Sig/Tanesha Route PRN Reason Start Time Stop Time Status Last Admin Dose Admin Sodium Chloride 1,000 ml @ 0 mls/hr Q10H IV 03/21/17 19:40 03/21/17 19:59 DC 03/21/17 19:59 Ketorolac Tromethamine (Toradol) 30 mg 1X ONCE IV 03/21/17 20:00 03/21/17 20:03 DC 03/21/17 20:12 Ondansetron HCl (Zofran) 4 mg 1X ONCE IV 03/21/17 20:00 03/21/17 20:03 DC 03/21/17 20:11 Pantoprazole Sodium (Protonix) 40 mg 1X ONCE PO 03/21/17 20:00 03/21/17 20:03 DC 03/21/17 20:36 Sodium Chloride 1,000 ml @ 0 mls/hr 1X ONCE IV 03/21/17 20:00 03/21/17 20:03 DC 03/21/17 20:00 Iohexol (Omnipaque 300 Mg/ml) 75 ml 1X ONCE IV 03/21/17 20:15 03/21/17 20:16 DC 03/21/17 20:48 Lorazepam (Ativan) 1 mg 1X ONCE IV 03/21/17 20:15 03/21/17 20:16 DC 03/21/17 20:12 Sodium Chloride 1,000 ml @ 1,000 mls/hr 1X ONCE IV 03/21/17 22:15 03/21/17 23:14 DC 03/21/17 21:58 Acetaminophen/ Hydrocodone Bitart (Lortab 5/325) 1 tab PRN Q4HRS PRN PO MODERATE PAIN 03/22/17 00:00 03/22/17 10:36 Ondansetron HCl (Zofran) 4 mg PRN Q6HRS PRN IV NAUSEA/VOMITING 03/22/17 00:00 03/22/17 04:12 Morphine Sulfate 2 mg PRN Q2HR PRN IV SEVERE PAIN 03/22/17 00:00 03/22/17 08:45 ALLERGIES ALLERGIES: Coded Allergies: No Known Drug Allergies (Unverified , 09/18/15) ROS Review of System 14 point ROS conducted with pertinent positives noted above in HPI. PHYSICAL EXAM General: Alert, Oriented X3, Cooperative HEENT: Atraumatic Lungs: Clear to auscultation, Normal air movement Heart: Normal S1, Normal S2, Other (IRRR- tele AFIB) Abdomen: Soft, Other (diffuse abdominal tenderness.) Extremities: No edema, Normal pulses Skin: No breakdown, No significant lesion Neuro: Normal speech, Sensation intact Psych/Mental Status: Mental status NL, Mood NL MUSCULOSKELETAL: No joint tenderness VITALS VITALS Vital Signs Date Time Temp Pulse Resp B/P (MAP) Pulse Ox O2 Delivery O2 Flow Rate FiO2 03/22/17 11:44 98 Room Air 2.0 03/22/17 11:10 98.0 73 20 144/97 (113) 98.0 LABS Lab: Laboratory Tests Test 03/21/17 19:01 03/21/17 19:40 White Blood Count 13.1 x10^3/uL (4.0-11.0) Red Blood Count 5.81 x10^6/uL (4.30-5.70) Hemoglobin 17.1 g/dL (13.0-17.5) Hematocrit 48.9 % (39.0-53.0) Mean Corpuscular Volume 84 fL (79-100) Mean Corpuscular Hemoglobin 29 pg (25-35) Mean Corpuscular Hemoglobin Concent 35 g/dL (31-37) Red Cell Distribution Width 12.2 % (11.5-14.5) Platelet Count 235 x10^3/uL (140-400) Neutrophils (%) (Auto) 85 % (31-73) Lymphocytes (%) (Auto) 11 % (24-48) Monocytes (%) (Auto) 3 % (0-9) Eosinophils (%) (Auto) 0 % (0-3) Basophils (%) (Auto) 0 % (0-3) Neutrophils # (Auto) 11.1 x10^3uL (1.8-7.7) Lymphocytes # (Auto) 1.5 x10^3/uL (1.0-4.8) Monocytes # (Auto) 0.5 x10^3/uL (0.0-1.1) Eosinophils # (Auto) 0.0 x10^3/uL (0.0-0.7) Basophils # (Auto) 0.1 x10^3/uL (0.0-0.2) Sodium Level 141 mmol/L (136-145) Potassium Level 4.0 mmol/L (3.5-5.1) Chloride Level 103 mmol/L (98-107) Carbon Dioxide Level 26 mmol/L (21-32) Anion Gap 12 (6-14) Blood Urea Nitrogen 7 mg/dL (8-26) Creatinine 0.9 mg/dL (0.7-1.3) Estimated GFR (Cockcroft-Gault) 97.2 BUN/Creatinine Ratio 8 (6-20) Glucose Level 148 mg/dL (70-99) Calcium Level 9.6 mg/dL (8.5-10.1) Total Bilirubin 0.8 mg/dL (0.2-1.0) Aspartate Amino Transf (AST/SGOT) 24 U/L (15-37) Alanine Aminotransferase (ALT/SGPT) 39 U/L (16-63) Alkaline Phosphatase 90 U/L (46-116) Troponin I Quantitative < 0.017 ng/mL (0.000-0.055) Total Protein 8.5 g/dL (6.4-8.2) Albumin 4.3 g/dL (3.4-5.0) Albumin/Globulin Ratio 1.0 (1.0-1.7) Lipase 267 U/L (73-393) Urine Collection Type Unknown Urine Color Yellow Urine Clarity Clear Urine pH 6.5 Urine Specific [place] >=1.030 Urine Protein 30 mg/dL (NEG-TRACE) Urine Glucose (UA) Negative mg/dL (NEG) Urine Ketones (Stick) Negative mg/dL (NEG) Urine Blood Negative (NEG) Urine Nitrite Negative (NEG) Urine Bilirubin Negative (NEG) Urine Urobilinogen Dipstick 0.2 mg/dL (0.2 mg/dL) Urine Leukocyte Esterase Negative (NEG) Urine RBC 0 /HPF (0-2) Urine WBC Occ /HPF (0-4) Urine Squamous Epithelial Cells Few /LPF Urine Bacteria 0 /HPF (0-FEW) Urine Mucus Mod /LPF ECHOCARDIOGRAM ECHOCARDIOGRAM <Conclusion> The left ventricular systolic function is normal and the ejection fraction is within normal range. The Ejection Fraction is 60-65%. No significant valvular abnormalities. DATE: 08/26/15 1033 ASSESSMENT/PLAN ASSESSMENT/PLAN 1. Paroxysmal AFIB 2. Abdominal/Epigastric pain; ? SBO- small bowel series underway 3. Malignant hypertension 4. Hyperlipidemia 5. ASAD with CPAP Recommendations Check TSH Start OAC therapy with Xarelto, first dose tonight. Will add flecainide for rhythm maintenance Keep NPO after MN. If he does not convert overnight, will plan for JUANPABLO guided CV in am. R/b/a discussed with patient and is agreeable. Problems: ZULY AGOSTO MD 03/22/17 3687: CARDIAC CONSULT ALLERGIES ALLERGIES: Coded Allergies: No Known Drug Allergies (Unverified , 09/18/15) ASSESSMENT/PLAN ASSESSMENT/PLAN Pt. 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 PAF in the setting of illness. Plan as noted above. Problems: MARILOU MENDEZ APRN Mar 22, 2017 12:33 ZULY AGOSTO MD Mar 22, 2017 17:17
[2017-03-22 14:55] VITALS: BP 135/98
[2017-03-22] MEDS ORDERED: 0.9 % SODIUM CHLORIDE 10 ML DISP.SYRIN. IV PRN (15:30)
--- NOTE | 2017-03-22 15:46 | RAD ---
Small bowel follow-through Indication: 31-year-old male with epigastric pain, nausea and vomiting. History of sigmoid colon resection in 2015. Technique: Small bowel follow-through with total fluoroscopy time of 0.7 minutes and 4 images. Comparison: Previous study from 10/04/2015. Findings: The out of school hours care worker image demonstrates moderate stool within ascending colon. The 0 minute images demonstrate opacification of the duodenum and jejunal loops. Progressive antegrade filling of the small bowel loops noted. The cecum, ascending and transverse colon is visualized at 1 hour 15 minutes. The terminal ileum demonstrate no evidence of stricture. No small bowel wall edema. Impression: 1. No bowel obstruction. 2. No stricture or fistula.
[2017-03-22] MEDS ORDERED: RIVAROXABAN 10 MG TABLET. PO SCH (17:00)
[2017-03-22 19:10] VITALS: BP 138/98
[2017-03-22] MEDS: FLECAINIDE ACETATE 50 MG TABLET. PO SCH (20:36)
[2017-03-22 23:28] VITALS: BP 155/108
[2017-03-23] MEDS ORDERED: IBUPROFEN 600 MG TABLET. PO PRN (02:30)
[2017-03-23 02:40] VITALS: BP 136/105
[2017-03-23] MEDS ORDERED: LIDOCAINE 2% TOPICAL JELLY 5GM TUBE. TP ONE (06:00)
[2017-03-23] MEDS ORDERED: LIDOCAINE 2% VISCOUS 15 ML SOLUTION. MM ONE (06:00)
[2017-03-23] MEDS ORDERED: PANTOPRAZOLE 40 MG TABLET.DR. PO SCH (07:30)
--- NOTE | 2017-03-23 07:38 | RAD ---
Right upper quadrant abdominal ultrasound, 03/23/2017: History: Nausea and vomiting The gallbladder is within normal limits in size. There is a small echogenic focus in the gallbladder neck. This is probably a gallstone, although no definite posterior acoustic shadowing was seen. The gallbladder metcalf are not thickened. The common hepatic duct is of normal caliber. There is no evidence of a hepatic mass. The visualized portions of the pancreas and right kidney are unremarkable. IMPRESSION: Probable small gallbladder calculus.
[2017-03-23 08:00] VITALS: BP 137/96
[2017-03-23 08:54] VITALS: BP 137/96
[2017-03-23] MEDS: HYDROcodone/APAP 5/325MG 1 TAB TABLET PO PRN (08:54)
[2017-03-23] MEDS: FLECAINIDE ACETATE 50 MG TABLET. PO SCH (08:54)
[2017-03-23] MEDS ORDERED: ASPI325T11 PO (10:16)
--- NOTE | 2017-03-23 10:19 | PDOC3 ---
Discharge Summary Visit Information Date of Admission: Mar 21, 2017 Date of Discharge: Mar 23, 2017 Final Diagnosis Problems Medical Problems: (1) Abdominal pain Status: Acute (2) Gastritis Status: Acute (3) Paroxysmal atrial fibrillation Status: Acute Brief Hospital Course Allergies Allergies Coded Allergies Type Severity Reaction Last Updated Verified No Known Drug Allergies 09/18/15 No Vital Signs Vital Signs Date Time Temp Pulse Resp B/P (MAP) Pulse Ox O2 Delivery O2 Flow Rate FiO2 03/23/17 08:54 74 137/96 03/23/17 08:54 96 Nasal Cannula 03/23/17 08:00 98.0 18 98.0 03/23/17 00:26 2.0 Lab Results Laboratory Tests Test 03/21/17 19:01 03/21/17 19:40 White Blood Count 13.1 x10^3/uL (4.0-11.0) Red Blood Count 5.81 x10^6/uL (4.30-5.70) Hemoglobin 17.1 g/dL (13.0-17.5) Hematocrit 48.9 % (39.0-53.0) Mean Corpuscular Volume 84 fL (79-100) Mean Corpuscular Hemoglobin 29 pg (25-35) Mean Corpuscular Hemoglobin Concent 35 g/dL (31-37) Red Cell Distribution Width 12.2 % (11.5-14.5) Platelet Count 235 x10^3/uL (140-400) Neutrophils (%) (Auto) 85 % (31-73) Lymphocytes (%) (Auto) 11 % (24-48) Monocytes (%) (Auto) 3 % (0-9) Eosinophils (%) (Auto) 0 % (0-3) Basophils (%) (Auto) 0 % (0-3) Neutrophils # (Auto) 11.1 x10^3uL (1.8-7.7) Lymphocytes # (Auto) 1.5 x10^3/uL (1.0-4.8) Monocytes # (Auto) 0.5 x10^3/uL (0.0-1.1) Eosinophils # (Auto) 0.0 x10^3/uL (0.0-0.7) Basophils # (Auto) 0.1 x10^3/uL (0.0-0.2) Sodium Level 141 mmol/L (136-145) Potassium Level 4.0 mmol/L (3.5-5.1) Chloride Level 103 mmol/L (98-107) Carbon Dioxide Level 26 mmol/L (21-32) Anion Gap 12 (6-14) Blood Urea Nitrogen 7 mg/dL (8-26) Creatinine 0.9 mg/dL (0.7-1.3) Estimated GFR (Cockcroft-Gault) 97.2 BUN/Creatinine Ratio 8 (6-20) Glucose Level 148 mg/dL (70-99) Calcium Level 9.6 mg/dL (8.5-10.1) Magnesium Level 2.1 mg/dL (1.8-2.4) Total Bilirubin 0.8 mg/dL (0.2-1.0) Aspartate Amino Transf (AST/SGOT) 24 U/L (15-37) Alanine Aminotransferase (ALT/SGPT) 39 U/L (16-63) Alkaline Phosphatase 90 U/L (46-116) Troponin I Quantitative < 0.017 ng/mL (0.000-0.055) Total Protein 8.5 g/dL (6.4-8.2) Albumin 4.3 g/dL (3.4-5.0) Albumin/Globulin Ratio 1.0 (1.0-1.7) Lipase 267 U/L (73-393) Thyroid Stimulating Hormone (TSH) 0.607 uIU/mL (0.358-3.74) Urine Collection Type Unknown Urine Color Yellow Urine Clarity Clear Urine pH 6.5 Urine Specific [place] >=1.030 Urine Protein 30 mg/dL (NEG-TRACE) Urine Glucose (UA) Negative mg/dL (NEG) Urine Ketones (Stick) Negative mg/dL (NEG) Urine Blood Negative (NEG) Urine Nitrite Negative (NEG) Urine Bilirubin Negative (NEG) Urine Urobilinogen Dipstick 0.2 mg/dL (0.2 mg/dL) Urine Leukocyte Esterase Negative (NEG) Urine RBC 0 /HPF (0-2) Urine WBC Occ /HPF (0-4) Urine Squamous Epithelial Cells Few /LPF Urine Bacteria 0 /HPF (0-FEW) Urine Mucus Mod /LPF Brief Hospital Course Mr. Berman is a 31 old [sex] who presented with [ ]31 y.o male with hx of bowel obstruction, gastritis, better when takes PPI admitted for the above sxs then found to be in atrial fib RVR, hx of atrial fib in past was on OAC but dcd when he converted to NSR. HE again converted to NSR, to dc on felicanide 50 BID and [id number] as dw cards. Also dw GS - advised PPI qD Pt seen and examined DispO; home Work excuse note provided Discharge Information Miscellaneous Medications [[no home meds]], (Reported) Discontinued Medications Amlodipine Besylate (Norvasc), 10 MG PO DAILY, (Reported) Omeprazole (Omeprazole), 20 MG PO DAILY, (Reported) Ondansetron (Zofran Odt), 1 TAB SL Q6HRS PRN for NAUSEA/VOMITING, (Reported) PAN SANON MD Mar 23, 2017 10:19
[2017-03-23] MEDS ORDERED: OMEP40CA5 PO (10:30)
[2017-03-23] MEDS ORDERED: FLEC100T PO (10:30)
--- NOTE | 2017-03-23 11:41 | PDOC ---
CARDIO Progress Notes Date and Time Date of Service 03/23/17 Time of Evaluation 0915 Subjective Subjective: No Chest Pain, No shortness of breath Vitals Vitals Vital Signs Date Time Temp Pulse Resp B/P (MAP) Pulse Ox O2 Delivery O2 Flow Rate FiO2 03/23/17 10:16 96 Room Air 03/23/17 08:54 74 137/96 03/23/17 08:00 98.0 18 98.0 03/23/17 00:26 2.0 Weight Weight [ ] Input and Output Intake and Output Intake and Output 03/23/17 07:00 Intake Total 2500 ml Balance 2500 ml Intake Oral 2500 ml # Voids 2 Physical Exam HEENT: Neck Supple W Full Motion Chest: Symmetric Heart: S1S2, RRR, no murmurs, other (tele: SR (converted overnight)) Extremities: No Edema Neurology: alert, oriented, follow commands Assessment Assessment 1. Paroxysmal AFIB; maintaining SR 2. Malignant hypertension 3. Hyperlipidemia 4. ASAD with CPAP Recommendations Converted to SR overnight. Continue rhythm maintenance therapy. Discontinue Xarelto as Cardioversion was not necessary. ASA for stoke prophylaxis as patient is low-risk. May discharge from a CV standpoint and f/u in our office with Dr. Ward in 4 -6 weeks. MARILOU MENDEZ APRN Mar 23, 2017 11:41
[2017-03-23] MEDS ORDERED: METO25TA2 PO (11:51)
--- NOTE | 2017-03-23 12:14 | PDOC ---
Provider Note Provider Note consult note/addendum to Kylie's note yesterday. I saw and examined this pt this am and repeated green parts of his consult he reports to me abd pain that began tuesday, was severe, and constant. Gradually improved and is resolved today. He took malox at home with improvement in the pain. He describes the pain as a dull hollow pain located in his epigastric and mid abd region. no RUQ pain. He has had this same type of pain in the past and was told he had gastritis. when he has this pain in the past, he takes omeprazole for a month and feels much better. he said he drank 2 monster drinks on tuesday just before his pain began so he thinks the monster drinks irritated his stomach ROS neg other than he felt his heart was racing when he was admitted h afib sh employed. moving to [place] soon. nonsmoker. +admits to marijuana use. denies other drug use recently afeb vss abd soft nd nt sbft normal u/s possible gallstone a/p epigastric pain. poss gastritis, poss symptomatic cholelithiasis. we had a long talk, since his pain has previously resolved with omeprazole, the u/s is not conclusive, his abdomen is expected to be hostile due to prior laparotomy, i think proceeding with cholecystectomy at this time is premature. instead rx for omeprazole given. if he continues to have symptoms then would consider for poss egd and poss cholecystectomy. he is agreeable and not desiring surgery at this time. BJORN POLO MD Mar 23, 2017 12:14
--- NOTE | 2017-03-23 13:05 | PDOC ---
A/P: Discharged before I saw. Note probable small gallbladder calculus on US. Follow-up w/ GI PRN; if RUQ pain recurs, consider surg eval. JAYLAN JOHN Mar 23, 2017 13:05
[2017-03-23] MEDS ORDERED: BENZOCAINE ONE 20% MUCOSAL SPRAY. MM (15:30)
== END 2017-03-23 12:10 | disposition home or self-care (01) | DRG 392 ==
LOC: ER 18:11 → 2 NORTH 22:20
PROVIDERS: ADMIT Internal Medicine; ATTEND Internal Medicine
DX: K21.9 Gastro-esophageal reflux disease without esophagitis (principal); I48.0 Paroxysmal atrial fibrillation; I10 Essential (primary) hypertension; K29.70 Gastritis, unspecified, without bleeding; E78.00 Pure hypercholesterolemia, unspecified; E78.5 Hyperlipidemia, unspecified; G47.33 Obstructive sleep apnea (adult) (pediatric); K57.90 Diverticulosis of intestine, part unspecified, without perforation or abscess without bleeding; Z82.49 Family history of ischemic heart disease and other diseases of the circulatory system; Z93.3 Colostomy status; Z93.2 Ileostomy status
CPT/HCPCS: 36415; 71010; 74177; 74250; 76705; 80053; 81001; 83690; 83735; 84443; 84484; 85025; 93005; 96361; 96374; 96375; J1885; J2060; J2270; J2405; J7030; Q9967; 99285-25

== ENCOUNTER 2017-07-26 20:45 | Inpatient (IN) | payer OTHER ==
[~2017-07-26] VITALS: Ht 162.6 cm; Wt 99.8 kg
[~2017-07-26 20:45] MED LIST changes: +ASPI325T11 PO; +FLEC100T PO; +METO25TA2 PO; +OMEP40CA5 PO; +[no home meds]
[2017-07-26] MEDS ORDERED: HYDROmorphone 2 MG/ML VIAL IV ONE (21:00)
[2017-07-26] MEDS ORDERED: ONDANSETRON PF 4 MG/2 ML VIAL. IV ONE (21:00)
[2017-07-26 21:11] LABS: HEMATOCRIT 52.3 % (39.0-53.0); HEMOGLOBIN 17.6 g/dL (13.0-17.5); RED BLOOD COUNT 6.03 x10^6/uL (4.30-5.70); RED CELL DISTRIBUTION WIDTH 12.5 % (11.5-14.5); WHITE BLOOD COUNT 17.5 x10^3/uL (4.0-11.0)
--- NOTE | 2017-07-26 21:36 | PHYS DOC ---
Past Medical History Past Medical History: A-Fib, High Cholesterol, Hypertension, Other Additional Past Medical Histor: gastritis, ruptured colon Past Surgical History: Other Additional Past Surgical Histo: sigmoid colon removed, ileostomy reversal Alcohol Use: None Drug Use: None Adult General Chief Complaint Chief Complaint: ABDOMINAL PAIN HPI HPI Patient is a 32 year old male with a history of atrial fibrillation, htn, and bowel resection with colostomy reversal presents to the ED complaining of vomiting x 1 day. States he started having the vomiting this morning. Yesterday he states he ate a lot of tamales and felt kind of bad afterwards. States he started vomiting this morning and having abdominal discomfort. States similar symptoms in the past with small bowel obstructions. Describes the pain as sharp. Rates the pain as 9/10. States he had one stool today. Denies chest pain , dizziness, weakness, blood in stool, diarrhea, headache, fever or shortness of breath. Review of Systems Review of Systems Constitutional: Denies fever or chills [] Eyes: Denies change in visual acuity, redness, or eye pain [] HENT: Denies nasal congestion or sore throat [] Respiratory: Denies cough or shortness of breath [] Cardiovascular: No additional information not addressed in HPI [] GI: Complains of abdominal pain and vomiting. Denies bloody stools or diarrhea [ ] : Denies dysuria or hematuria [] Musculoskeletal: Denies back pain or joint pain [] Integument: Denies rash or skin lesions [] Neurologic: Denies headache, focal weakness or sensory changes [] Endocrine: Denies polyuria or polydipsia [] All other systems were reviewed and found to be within normal limits, except as documented in this note. Current Medications Current Medications Current Medications Medications (Trade) Dose Ordered Sig/Tanesha Start Time Stop Time Status Last Admin Dose Admin Acetaminophen (Tylenol) 650 mg PRN Q4HRS PRN 07/26/17 23:30 07/27/17 23:29 Ceftriaxone Sodium 50 ml @ 100 mls/hr 1X ONCE 07/26/17 23:30 07/26/17 23:59 07/26/17 23:36 100 MLS/HR Fentanyl Citrate (Fentanyl 2ml Vial) 50 mcg PRN Q2HR PRN 07/26/17 23:30 07/27/17 23:29 Hydromorphone HCl (Dilaudid) 1 mg 1X ONCE 07/26/17 21:00 07/26/17 21:02 DC 07/26/17 21:12 1 MG Ondansetron HCl (Zofran) 4 mg PRN Q8HRS PRN 07/26/17 23:30 07/27/17 23:29 Sodium Chloride 1,000 ml @ 1,000 mls/hr 1X ONCE 07/26/17 22:30 07/26/17 23:29 DC 07/26/17 22:28 1,000 MLS/HR Allergies Allergies Allergies Coded Allergies Type Severity Reaction Last Updated Verified No Known Drug Allergies 09/18/15 No Physical Exam Physical Exam Constitutional: Well developed, well nourished, no acute distress, non-toxic appearance. [] HENT: Normocephalic, atraumatic, bilateral external ears normal, oropharynx moist, no oral exudates, nose normal. [] Eyes: PERRLA, EOMI, conjunctiva normal, no discharge. [] Neck: Normal range of motion, no tenderness, supple, no stridor. [] Cardiovascular:Heart rate regular rhythm, no murmur [] Lungs & Thorax: Bilateral breath sounds clear to auscultation [] Abdomen: Bowel sounds normal, soft, MILD EPIGASTRIC TENDERNESS, no masses, no pulsatile masses. [] Skin: Warm, dry, no erythema, no rash. [] Back: No tenderness, no CVA tenderness. [] Extremities: No tenderness, no cyanosis, no clubbing, ROM intact, no edema. [] Neurologic: Alert and oriented X 3, normal motor function, normal sensory function, no focal deficits noted. [] Psychologic: Affect normal, judgement normal, mood normal. [] Current Patient Data Vital Signs Vital Signs Date Time Temp Pulse Resp B/P (MAP) Pulse Ox O2 Delivery O2 Flow Rate FiO2 07/26/17 21:00 99.1 104 22 171/122 (138) 96 Room Air 99.1 Lab Values Laboratory Tests Test 07/26/17 21:05 07/26/17 21:50 07/26/17 22:28 White Blood Count 17.5 x10^3/uL (4.0-11.0) H Red Blood Count 6.03 x10^6/uL (4.30-5.70) H Hemoglobin 17.6 g/dL (13.0-17.5) H Hematocrit 52.3 % (39.0-53.0) Mean Corpuscular Volume 87 fL (79-100) Mean Corpuscular Hemoglobin 29 pg (25-35) Mean Corpuscular Hemoglobin Concent 34 g/dL (31-37) Red Cell Distribution Width 12.5 % (11.5-14.5) Platelet Count 294 x10^3/uL (140-400) Sodium Level 134 mmol/L (136-145) L Potassium Level 4.1 mmol/L (3.5-5.1) Chloride Level 97 mmol/L (98-107) L Carbon Dioxide Level 19 mmol/L (21-32) L Anion Gap 18 (6-14) H Blood Urea Nitrogen 14 mg/dL (8-26) Creatinine 1.5 mg/dL (0.7-1.3) H Estimated GFR (Cockcroft-Gault) 53.6 BUN/Creatinine Ratio 9 (6-20) Glucose Level 206 mg/dL (70-99) H Calcium Level 9.2 mg/dL (8.5-10.1) Total Bilirubin 0.9 mg/dL (0.2-1.0) Aspartate Amino Transferase (AST) 32 U/L (15-37) Alanine Aminotransferase (ALT) 62 U/L (16-63) Alkaline Phosphatase 84 U/L (46-116) Creatine Kinase 234 U/L (39-308) Troponin I Quantitative < 0.017 ng/mL (0.000-0.055) Total Protein 9.1 g/dL (6.4-8.2) H Albumin 4.6 g/dL (3.4-5.0) Albumin/Globulin Ratio 1.0 (1.0-1.7) Lipase 99 U/L (73-393) Urine Collection Type Unknown Urine Color Karen Urine Clarity Clear Urine pH 5.5 Urine Specific [place] >=1.030 Urine Protein >=300 mg/dL (NEG-TRACE) Urine Glucose (UA) Negative mg/dL (NEG) Urine Ketones (Stick) Trace mg/dL (NEG) Urine Blood Negative (NEG) Urine Nitrite Negative (NEG) Urine Bilirubin Negative (NEG) Urine Urobilinogen Dipstick 0.2 mg/dL (0.2 mg/dL) Urine Leukocyte Esterase Negative (NEG) Urine RBC 6-10 /HPF (0-2) Urine WBC Tntc /HPF (0-4) Urine Squamous Epithelial Cells Few /LPF Urine Bacteria Many /HPF (0-FEW) Urine Mucus Marked /LPF Lactic Acid Level 2.2 mmol/L (0.4-2.0) H Laboratory Tests 07/26/17 21:05 Laboratory Tests 07/26/17 21:05 EKG EKG [] Radiology/Procedures Radiology/Procedures PROCEDURE: ACUTE ABDOMEN SERIES PA chest and AP upright supine abdomen x-rays HISTORY: Epigastric abdominal pain, history of bowel obstruction COMPARISON: CT abdomen and pelvis March 21, 2017 FINDINGS: Heart and mediastinum are unremarkable. Right lung is clear. There is asymmetric left hilar density, a perihilar infiltrate or hilar mass/adenopathy is not excluded. No pneumoperitoneum. At the right lower quadrant there is a single gaseous distended bowel loop diameter of 4 cm with an air-fluid level this could be either within the right-sided colon which would be normal, or with and the distal small bowel proximal of bowel anastomosis present on prior CT imaging which could be indicative of a low-grade distal small bowel obstruction proximal of the anastomosis, although the absence of additional dilated bowel loops is less typical for obstruction. IMPRESSION: 1. Distended right lower quadrant bowel loop with air-fluid level as described above. 2. Asymmetric left hilar density, a perihilar infiltrate versus hilar mass/adenopathy is not excluded. Electronically signed by: Ramón Rose MD (07/26/2017 11:07 PM) [facility] Course & Med Decision Making Course & Med Decision Making Pertinent Labs and Imaging studies reviewed. (See chart for details) Patient has had 7 CT's in just over 1 year. Patient elects to have X-ray imaging. Discussed imaging findings with patient. Patient refused NG tube. Patient well appearing. States he is feeling much better. Discussed labs and imaging with hospitalist, Dr. Holt. Agrees to admission and further management of patient. Patient stable for admission. GI consult placed. Frances Disclaimer [place] Disclaimer This electronic medical record was generated, in whole or in part, using a voice recognition dictation system. Departure Departure Impression: Primary Impression: Small bowel obstruction Additional Impressions: Vomiting Bacteria in urine Disposition: ADMITTED INPATIENT Admitting Physician: Other (REUSCH) Condition: STABLE Referrals: NO PCP (PCP) Problem Qualifiers LAURA ORTEGA Jul 26, 2017 21:36
[2017-07-26 21:48] LABS: ALBUMIN 4.6 g/dL (3.4-5.0); CALCIUM 9.2 mg/dL (8.5-10.1); CREATININE 1.5 mg/dL (0.7-1.3); GFR 53.6; POTASSIUM 4.1 mmol/L (3.5-5.1); TOTAL BILIRUBIN 0.9 mg/dL (0.2-1.0); TOTAL PROTEIN 9.1 g/dL (6.4-8.2)
--- NOTE | 2017-07-26 21:56 | EKG ---
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
[2017-07-26 22:00] LABS: BILIRUBIN,URINE NEGATIVE (NEG); GLUCOSE,URINE NEGATIVE (NEG); NITRITE,URINE NEGATIVE (NEG); PH,URINE 5.5; PROTEIN,URINE >=300 mg/dL (NEG-TRACE); UROBILINOGEN,URINE 0.2 mg/dL (0.2 mg/dL)
[2017-07-26 22:14] LABS: BACTERIA,URINE MANY /HPF (0-FEW); SQUAMOUS EPITHELIAL CELL,UR FEW /LPF; WBC,URINE TNTC /HPF (0-4)
[2017-07-26] MEDS ORDERED: IV NORMAL SALINE 1000ML BAG 1,000 ML IV ONE (22:30)
--- NOTE | 2017-07-26 23:10 | RAD ---
PA chest and AP upright supine abdomen x-rays HISTORY: Epigastric abdominal pain, history of bowel obstruction COMPARISON: CT abdomen and pelvis March 21, 2017 FINDINGS: Heart and mediastinum are unremarkable. Right lung is clear. There is asymmetric left hilar density, a perihilar infiltrate or hilar mass/adenopathy is not excluded. No pneumoperitoneum. At the right lower quadrant there is a single gaseous distended bowel loop diameter of 4 cm with an air-fluid level this could be either within the right-sided colon which would be normal, or with and the distal small bowel proximal of bowel anastomosis present on prior CT imaging which could be indicative of a low-grade distal small bowel obstruction proximal of the anastomosis, although the absence of additional dilated bowel loops is less typical for obstruction. IMPRESSION: 1. Distended right lower quadrant bowel loop with air-fluid level as described above. 2. Asymmetric left hilar density, a perihilar infiltrate versus hilar mass/adenopathy is not excluded. Electronically signed by: Ramón Rose MD (07/26/2017 11:07 PM) [facility]
[2017-07-26] MEDS ORDERED: fentaNYL PF VIAL 100 MCG/2 ML VIAL IV ONE (23:30)
[2017-07-26] MEDS ORDERED: ACETAMINOPHEN 325 MG TABLET. PO PRN (23:30)
[2017-07-26] MEDS ORDERED: ONDANSETRON PF 4 MG/2 ML VIAL. IV PRN (23:30)
[2017-07-27] MEDS: fentaNYL PF VIAL 100 MCG/2 ML VIAL IV PRN ×9 (04:20→23:45)
[2017-07-27 05:17] LABS: BASO % 0 % (0-3); EOS % 0 % (0-3); HEMATOCRIT 47.5 % (39.0-53.0); HEMOGLOBIN 15.6 g/dL (13.0-17.5); LYMPH # 2.2 x10^3/uL (1.0-4.8); LYMPH % 15 % (24-48); MEAN CORPUSCULAR HEMOGLOBIN 28 pg (25-35); MEAN CORPUSCULAR HGB CONC 33 g/dL (31-37); MEAN CORPUSCULAR VOLUME 86 fL (79-100); MONO % 6 % (0-9); NEUT % 79 % (31-73); PLATELET COUNT 264 x10^3/uL (140-400); RED BLOOD COUNT 5.51 x10^6/uL (4.30-5.70); RED CELL DISTRIBUTION WIDTH 12.5 % (11.5-14.5); WHITE BLOOD COUNT 14.3 x10^3/uL (4.0-11.0)
[2017-07-27 05:33] LABS: ALBUMIN 3.9 g/dL (3.4-5.0); CALCIUM 8.4 mg/dL (8.5-10.1); TOTAL PROTEIN 7.8 g/dL (6.4-8.2)
[2017-07-27 05:34] LABS: GFR 85.5; POTASSIUM 3.8 mmol/L (3.5-5.1); TOTAL BILIRUBIN 0.8 mg/dL (0.2-1.0)
--- NOTE | 2017-07-27 09:28 | PDOC2 ---
GI CONSULT Reason For Consult: SBO HPI: HPI: 32 y/o male w/ recurrent periumbilical/epigastric pain which he calls gastritis. Says always precipitated by overeating. Symptoms occurred after Thanksgiving, after his birthday, and now after [place] - ate too many tamales this time. Awoke at 4:00 a.m. yesterday w/ upper abd discomfort. Thought inducing vomiting would make him feel better, actually made him feel worse. Associated w/ heartburn and a few watery stools like usual. H/o sigmoid perforation w/ resection and loop ileostomy/reversal (Dr. Barros), previous colonoscopy by Dr. Das. Says if he could just get pain under control, he could go home, rates 03/10 currently. No previous EGD, only has heartburn when pain occurs. Took omeprazole for awhile, stopped because he read it wasn't for long-term use. No regular NSAID use. No bleeding or weight loss. Last CT here in 03/2017: dilated SB loop at anastomotic suture line w/ presence of fecal material. SBS (in 2015 and 03/2017): no obstruction/stricture. US 03/2017: probable small GB calculus. Surg eval 03/2017: consider EGD or cholecystectomy if symptoms persist despite omeprazole. PMH: PMH: A Fib, HTN, HLD, diverticular disease w/ sigmoid perforation w/ resection and loop ileostomy/reversal FH: Family History: No pertinent hx Social History: ALCOHOL: none Drugs: Marijuana ROS: GEN: Denies fevers, chills, sweats HEENT: Denies blurred vision, sore throat CV: Denies chest pain RESP: Denies shortness of air, cough GI: Per HPI : Denies hematuria, dysuria ENDO: Denies weight changes NEURO: Denies confusion, dizziness MSK: Denies weakness, joint pain/swelling SKIN: Denies jaundice, pruritus Vitals: Vitals: Vital Signs Date Time Temp Pulse Resp B/P (MAP) Pulse Ox O2 Delivery O2 Flow Rate FiO2 07/27/17 08:49 14 98 Room Air 07/27/17 05:36 81 156/89 (111) 2.0 07/26/17 21:00 99.1 99.1 Labs: Labs: Laboratory Tests Test 07/26/17 21:05 07/26/17 21:50 07/26/17 22:28 07/27/17 01:10 White Blood Count 17.5 x10^3/uL (4.0-11.0) Red Blood Count 6.03 x10^6/uL (4.30-5.70) Hemoglobin 17.6 g/dL (13.0-17.5) Hematocrit 52.3 % (39.0-53.0) Mean Corpuscular Volume 87 fL (79-100) Mean Corpuscular Hemoglobin 29 pg (25-35) Mean Corpuscular Hemoglobin Concent 34 g/dL (31-37) Red Cell Distribution Width 12.5 % (11.5-14.5) Platelet Count 294 x10^3/uL (140-400) Sodium Level 134 mmol/L (136-145) Potassium Level 4.1 mmol/L (3.5-5.1) Chloride Level 97 mmol/L (98-107) Carbon Dioxide Level 19 mmol/L (21-32) Anion Gap 18 (6-14) Blood Urea Nitrogen 14 mg/dL (8-26) Creatinine 1.5 mg/dL (0.7-1.3) Estimated GFR (Cockcroft-Gault) 53.6 BUN/Creatinine Ratio 9 (6-20) Glucose Level 206 mg/dL (70-99) Calcium Level 9.2 mg/dL (8.5-10.1) Total Bilirubin 0.9 mg/dL (0.2-1.0) Aspartate Amino Transf (AST/SGOT) 32 U/L (15-37) Alanine Aminotransferase (ALT/SGPT) 62 U/L (16-63) Alkaline Phosphatase 84 U/L (46-116) Creatine Kinase 234 U/L (39-308) Troponin I Quantitative < 0.017 ng/mL (0.000-0.055) < 0.017 ng/mL (0.000-0.055) Total Protein 9.1 g/dL (6.4-8.2) Albumin 4.6 g/dL (3.4-5.0) Albumin/Globulin Ratio 1.0 (1.0-1.7) Lipase 99 U/L (73-393) Urine Collection Type Unknown Urine Color Karen Urine Clarity Clear Urine pH 5.5 Urine Specific [place] >=1.030 Urine Protein >=300 mg/dL (NEG-TRACE) Urine Glucose (UA) Negative mg/dL (NEG) Urine Ketones (Stick) Trace mg/dL (NEG) Urine Blood Negative (NEG) Urine Nitrite Negative (NEG) Urine Bilirubin Negative (NEG) Urine Urobilinogen Dipstick 0.2 mg/dL (0.2 mg/dL) Urine Leukocyte Esterase Negative (NEG) Urine RBC 6-10 /HPF (0-2) Urine WBC Tntc /HPF (0-4) Urine Squamous Epithelial Cells Few /LPF Urine Bacteria Many /HPF (0-FEW) Urine Mucus Marked /LPF Lactic Acid Level 2.2 mmol/L (0.4-2.0) Test 07/27/17 04:33 White Blood Count 14.3 x10^3/uL (4.0-11.0) Red Blood Count 5.51 x10^6/uL (4.30-5.70) Hemoglobin 15.6 g/dL (13.0-17.5) Hematocrit 47.5 % (39.0-53.0) Mean Corpuscular Volume 86 fL (79-100) Mean Corpuscular Hemoglobin 28 pg (25-35) Mean Corpuscular Hemoglobin Concent 33 g/dL (31-37) Red Cell Distribution Width 12.5 % (11.5-14.5) Platelet Count 264 x10^3/uL (140-400) Neutrophils (%) (Auto) 79 % (31-73) Lymphocytes (%) (Auto) 15 % (24-48) Monocytes (%) (Auto) 6 % (0-9) Eosinophils (%) (Auto) 0 % (0-3) Basophils (%) (Auto) 0 % (0-3) Neutrophils # (Auto) 11.3 x10^3uL (1.8-7.7) Lymphocytes # (Auto) 2.2 x10^3/uL (1.0-4.8) Monocytes # (Auto) 0.8 x10^3/uL (0.0-1.1) Eosinophils # (Auto) 0.0 x10^3/uL (0.0-0.7) Basophils # (Auto) 0.0 x10^3/uL (0.0-0.2) Sodium Level 140 mmol/L (136-145) Potassium Level 3.8 mmol/L (3.5-5.1) Chloride Level 102 mmol/L (98-107) Carbon Dioxide Level 23 mmol/L (21-32) Anion Gap 15 (6-14) Blood Urea Nitrogen 13 mg/dL (8-26) Creatinine 1.0 mg/dL (0.7-1.3) Estimated GFR (Cockcroft-Gault) 85.5 BUN/Creatinine Ratio 13 (6-20) Glucose Level 117 mg/dL (70-99) Lactic Acid Level 0.9 mmol/L (0.4-2.0) Calcium Level 8.4 mg/dL (8.5-10.1) Total Bilirubin 0.8 mg/dL (0.2-1.0) Aspartate Amino Transf (AST/SGOT) 26 U/L (15-37) Alanine Aminotransferase (ALT/SGPT) 51 U/L (16-63) Alkaline Phosphatase 67 U/L (46-116) Troponin I Quantitative < 0.017 ng/mL (0.000-0.055) Total Protein 7.8 g/dL (6.4-8.2) Albumin 3.9 g/dL (3.4-5.0) Albumin/Globulin Ratio 1.0 (1.0-1.7) Allergies: Coded Allergies: No Known Drug Allergies (Unverified , 09/18/15) Medications: Current Medications Medications (Trade) Dose Ordered Sig/Tanesha Route PRN Reason Start Time Stop Time Status Last Admin Dose Admin Ondansetron HCl (Zofran) 4 mg 1X ONCE IV 07/26/17 21:00 07/26/17 21:02 NM 07/26/17 21:12 Hydromorphone HCl (Dilaudid) 1 mg 1X ONCE IV 07/26/17 21:00 07/26/17 21:02 DC 07/26/17 21:12 Sodium Chloride 1,000 ml @ 1,000 mls/hr 1X ONCE IV 07/26/17 22:30 07/26/17 23:29 DC 07/26/17 22:28 Ceftriaxone Sodium 50 ml @ 100 mls/hr 1X ONCE IV 07/26/17 23:30 07/26/17 23:59 DC 07/26/17 23:36 Fentanyl Citrate (Fentanyl 2ml Vial) 50 mcg 1X ONCE IV 07/26/17 23:30 07/26/17 23:31 DC 07/26/17 23:36 Fentanyl Citrate (Fentanyl 2ml Vial) 50 mcg PRN Q2HR PRN IV SEVERE PAIN 07/26/17 23:30 07/27/17 23:29 07/27/17 08:49 Imaging: Imaging: Acute Abd Series IMPRESSION: 1. Distended right lower quadrant bowel loop with air-fluid level. 2. Asymmetric left hilar density, a perihilar infiltrate versus hilar mass/ adenopathy is not excluded. PE: GEN: NAD HEENT: Atraumatic, PERRL LUNGS: CTAB HEART: RRR ABD: NABS, S/ND, epigastric/periumbilical discomfort EXTREMITY: No edema SKIN: No rashes, no jaundice NEURO/PSYCH: A & O 3 A/P: A/P: Recurrent upper abd pain -associated w/ nausea, heartburn, loose stools -precipitated by overeating -previous CT w/ dilated SB loop at anastomosis, two previous SBS neg, previous US w/ probable small gallstone -this time x-ray w/ distended RLQ bowel loop with air-fluid level S/p sigmoid resection and loop ileostomy/reversal Leukocytosis -- Reviewed w/ Dr. Das - will ask surgery to comment. 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 JAYLAN JOHN Jul 27, 2017 09:28
[2017-07-27 10:30] VITALS: BP 139/101
[2017-07-27] MEDS: FAMOTIDINE 20 MG/2 ML VIAL IVP SCH ×2 (11:11→21:10)
[2017-07-27 15:00] VITALS: BP 134/90
[2017-07-27 19:00] VITALS: BP 141/100
--- NOTE | 2017-07-27 19:51 | HP ---
ADMIT DATE: 07/26/2017 CHIEF COMPLAINT: Abdominal pain, nausea, vomiting, diarrhea. HISTORY OF PRESENT ILLNESS: The patient is a pleasant 32-year-old male who basically presents with nausea, vomiting, abdominal pain. He has had previous surgery including a perforation with resection and loop ileostomy, although that has been reversed. This was done by Dr. Barros. He thinks his pain today was from eating too many [employer]. He thought vomiting would help, but is actually made it worse, rates it at 9/10. I have discussed the case with the ER physician. We are going to admit the patient and consult GI and General Surgery. PAST MEDICAL HISTORY: The above-mentioned perforation with loop ileostomy and reversal, AFib, hypertension, hyperlipidemia, diverticular disease. ALLERGIES: None. FAMILY HISTORY: Hypertension. SOCIAL HISTORY: He smokes pot. No drinking or drugs. MEDICATIONS: Reviewed. REVIEW OF SYSTEMS: GENERAL: No history of weight change, weakness or fevers. SKIN: No bruising, hair changes or rashes. EYES: No blurred, double or loss of vision. NOSE AND THROAT: No history of nosebleeds, hoarseness or sore throat. HEART: No history of palpitations, chest pain or shortness of breath on exertion. LUNGS: Denies cough, hemoptysis, wheezing or shortness of breath. GASTROINTESTINAL: He complains of abdominal pain, thinks it gastritis. GENITOURINARY: No history of frequency, urgency, hesitancy or nocturia. NEUROLOGIC: Denies history of numbness, tingling, tremor or weakness. PSYCHIATRIC: No history of panic, anxiety or depression. ENDOCRINE: No history of heat or cold intolerance, polyuria or polydipsia. EXTREMITIES: Denies muscle weakness, joint pain, pain on walking or stiffness. PHYSICAL EXAMINATION: VITAL SIGNS: Temperature afebrile, pulse 70, respirations 18, blood pressure 113/74. GENERAL: He is alert, cooperative, requesting discharge, but his abdomen is still hurting, 8/10. HEART: Normal S1, S2. LUNGS: Clear. ABDOMEN: Soft. Decreased bowel sounds and tender. EXTREMITIES: No edema. SKIN: No rashes. ENDOCRINE: No thyromegaly. LYMPHATICS: No cervical nodes. HEMATOPOIETIC: No bruising. LABORATORY DATA: White count 17, hemoglobin 17, platelets 294. Electrolytes normal. Abdominal imaging has shown a small bowel obstruction. ASSESSMENT AND PLAN: Small bowel obstruction, suspect this is related to his previous surgeries, perhaps he has an adhesion. The patient is being admitted. We will consult GI. IV antibiotics, IV fluids, p.r.n. antiemetics, p.r.n. narcotics. We will try to resume his home meds. PROGNOSIS: Guarded, long-term. FAM CENTENO DO DR: FRANCIS/jacobo JOB#: [id number] / [id number]
[2017-07-27] MEDS: LACTOBACILLUS RHAMNOSUS GG 1 CAPSULE. PO SCH (20:50)
[2017-07-27] MEDS ORDERED: cefTRIAXone IV Push 1 GM VIAL. IVP SCH (22:00)
[2017-07-27 23:00] VITALS: BP 140/90
[2017-07-28] MEDS: fentaNYL PF VIAL 100 MCG/2 ML VIAL IV PRN ×3 (01:52→13:15)
[2017-07-28 03:00] VITALS: BP 143/104
[2017-07-28 07:00] VITALS: BP 122/80
[2017-07-28] MEDS: LACTOBACILLUS RHAMNOSUS GG 1 CAPSULE. PO SCH (08:03)
[2017-07-28] MEDS: FAMOTIDINE 20 MG/2 ML VIAL IVP SCH (08:24)
--- NOTE | 2017-07-28 08:47 | PDOC2 ---
CONSULT Date of Consult Date of Consult DATE: 07/28/17 TIME: 08:35 Reason for Consult Reason for Consult: abd pain Referring Physician Referring Physician: Dr Das Identification/Chief Complaint Chief Complaint abd pain Problems: Source Source: Chart review, Patient History of Present Illness Reason for Visit: He is a previous patient of Dr Barros that underwent a sigmoid resection, ileostomy and reversal in [id number]. After his surgeries he had admissions similar to this, although never had any obstructions. I did review previous CTs and there was similar findings of small bowel dilation at the anastomosis. Gi has evaluated Reports acute onset epigastric pain after eating. Associated nausea and emesis. He reports that this occurs after overeating. He feels like his symptoms are gastritis. 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 Reports + flatus, no stool since admission. Currently feeling better, however has not eaten. Thinks he could keep something down today Past Medical History Cardiovascular: AFIB, HTN, Hyperlipidemia Pulmonary: Other GI: Diverticulosis, GERD, Other Heme/Onc: No pertinent hx Hepatobiliary: No pertinent hx Psych: No pertinent hx Rheumatologic: No pertinent hx Infectious disease: No pertinent hx Renal/: No pertinent hx Endocrine: No pertinent hx Past Surgical History Past Surgical History: Colon Resection, Other Family History Family History: Hypertension Social History ALCOHOL: none Drugs: Marijuana Lives: with Family Current Problem List Problem List Problems Medical Problems: (1) Bacteria in urine Status: Acute (2) Small bowel obstruction Status: Acute (3) Vomiting Status: Acute Current Medications Current Medications Current Medications Ondansetron HCl (Zofran) 4 mg 1X ONCE IV Last administered on 07/26/17 21:12 ; Start 07/26/17 at 21:00; Stop 07/26/17 at 21:02; Status DC Hydromorphone HCl (Dilaudid) 1 mg 1X ONCE IV Last administered on 07/26/17 21:12; Start 07/26/17 at 21:00; Stop 07/26/17 at 21:02; Status DC Sodium Chloride 1,000 ml @ 1,000 mls/hr 1X ONCE IV Last administered on 07/26 22:28; Start 07/26/17 at 22:30; Stop 07/26/17 at 23:29; Status DC Ceftriaxone Sodium 50 ml @ 100 mls/hr 1X ONCE IV Last administered on 23:36; Start 07/26/17 at 23:30; Stop 07/26/17 at 23:59; Status DC Fentanyl Citrate (Fentanyl 2ml Vial) 50 mcg 1X ONCE IV Last administered on 23:36; Start 07/26/17 at 23:30; Stop 07/26/17 at 23:31; Status DC Ondansetron HCl (Zofran) 4 mg PRN Q8HRS PRN IV NAUSEA/VOMITING Last administered on 07/27/17 23:03; Start 07/26/17 at 23:30; Stop 07/27/17 at 23 :29; Status DC Fentanyl Citrate (Fentanyl 2ml Vial) 50 mcg PRN Q2HR PRN IV SEVERE PAIN Last administered on 07/27/17 21:22; Start 07/26/17 at 23:30; Stop 07/27/17 at 23 :29; Status DC Acetaminophen (Tylenol) 650 mg PRN Q4HRS PRN PO FEVER; Start 07/26/17 at 23:30 ; Stop 07/27/17 at 23:29; Status DC Famotidine (Pepcid Vial) 20 mg BID IVP Last administered on 07/28/17 08:24; Start 07/27/17 at 10:00 Ceftriaxone Sodium 1 gm/ Dextrose 50 ml @ 100 mls/hr Q24H IV ; Start 07/27/17 at 20:30; Status UNV Metronidazole 100 ml @ 100 mls/hr Q6HRS IV Last administered on 07/28/17 06: 15; Start 07/27/17 at 21:00 Ceftriaxone Sodium (Rocephin) 1 gm Q24H IVP Last administered on 07/27/17 22: 57; Start 07/27/17 at 22:00 Lactobacillus Rhamnosus (Culturelle) 1 cap BID PO ; Start 07/27/17 at 21:00 Fentanyl Citrate (Fentanyl 2ml Vial) 50 mcg PRN Q2HR PRN IV PAIN Last administered on 07/28/17 06:24; Start 07/27/17 at 23:45 Active Scripts Active Aspirin Ec (Aspirin) 325 Mg Tablet.dr 1 Tab PO DAILY Reported Toprol Xl (Metoprolol Succinate) 25 Mg Tab.er.24h 1 Tab PO DAILY Flecainide Acetate 100 Mg Tablet 0.5 Tab PO BID Omeprazole 40 Mg Capsule. 1 Cap PO DAILY Allergies Allergies: Coded Allergies: No Known Drug Allergies (Unverified , 09/18/15) ROS General: No: Chills, Other (fevers) PSYCHOLOGICAL ROS: No: Anxiety, Depression Eyes: No Blurry vision, No Double vision HEENT: No: Heacaches, Sore Throat Hematological and Lymphatic: No: Bleeding Problems, Blood Clots Respiratory: No: Cough, Shortness of breath Cardiovascular: No Chest Pain, No Palpitations Gastrointestinal: Yes Other (see hpi) Genitourinary: No Dysuria, No Hematuria Musculoskeletal: No Joint Pain Neurological: No Confusion, No Numbness/Tingling Skin: No Pruritus, No Rash Physical Exam General: Alert, Oriented X3, Cooperative, No acute distress HEENT: PERRLA, Mucous membr. moist/pink Lungs: Clear to auscultation, Normal air movement Heart: Regular rate, Normal S1, Normal S2, No murmurs Abdomen: Soft, No tenderness, Other (midline scar) Extremities: No clubbing, No cyanosis Skin: No rashes, No breakdown Neuro: Normal gait, Normal speech Psych/Mental Status: Mental status NL, Mood NL MUSCULOSKELETAL: No deformity, No swelling Vitals VITALS Vital Signs Date Time Temp Pulse Resp B/P (MAP) Pulse Ox O2 Delivery O2 Flow Rate FiO2 07/28/17 07:15 Room Air 07/28/17 06:55 20 94 2.0 07/28/17 03:00 96.1 69 143/104 (117) 96.1 Labs Labs Laboratory Tests Test 07/26/17 21:05 07/26/17 21:50 07/26/17 22:28 07/27/17 01:10 White Blood Count 17.5 x10^3/uL (4.0-11.0) Red Blood Count 6.03 x10^6/uL (4.30-5.70) Hemoglobin 17.6 g/dL (13.0-17.5) Hematocrit 52.3 % (39.0-53.0) Mean Corpuscular Volume 87 fL (79-100) Mean Corpuscular Hemoglobin 29 pg (25-35) Mean Corpuscular Hemoglobin Concent 34 g/dL (31-37) Red Cell Distribution Width 12.5 % (11.5-14.5) Platelet Count 294 x10^3/uL (140-400) Sodium Level 134 mmol/L (136-145) Potassium Level 4.1 mmol/L (3.5-5.1) Chloride Level 97 mmol/L (98-107) Carbon Dioxide Level 19 mmol/L (21-32) Anion Gap 18 (6-14) Blood Urea Nitrogen 14 mg/dL (8-26) Creatinine 1.5 mg/dL (0.7-1.3) Estimated GFR (Cockcroft-Gault) 53.6 BUN/Creatinine Ratio 9 (6-20) Glucose Level 206 mg/dL (70-99) Calcium Level 9.2 mg/dL (8.5-10.1) Total Bilirubin 0.9 mg/dL (0.2-1.0) Aspartate Amino Transf (AST/SGOT) 32 U/L (15-37) Alanine Aminotransferase (ALT/SGPT) 62 U/L (16-63) Alkaline Phosphatase 84 U/L (46-116) Creatine Kinase 234 U/L (39-308) Troponin I Quantitative < 0.017 ng/mL (0.000-0.055) < 0.017 ng/mL (0.000-0.055) Total Protein 9.1 g/dL (6.4-8.2) Albumin 4.6 g/dL (3.4-5.0) Albumin/Globulin Ratio 1.0 (1.0-1.7) Lipase 99 U/L (73-393) Urine Collection Type Unknown Urine Color Karen Urine Clarity Clear Urine pH 5.5 Urine Specific [place] >=1.030 Urine Protein >=300 mg/dL (NEG-TRACE) Urine Glucose (UA) Negative mg/dL (NEG) Urine Ketones (Stick) Trace mg/dL (NEG) Urine Blood Negative (NEG) Urine Nitrite Negative (NEG) Urine Bilirubin Negative (NEG) Urine Urobilinogen Dipstick 0.2 mg/dL (0.2 mg/dL) Urine Leukocyte Esterase Negative (NEG) Urine RBC 6-10 /HPF (0-2) Urine WBC Tntc /HPF (0-4) Urine Squamous Epithelial Cells Few /LPF Urine Bacteria Many /HPF (0-FEW) Urine Mucus Marked /LPF Lactic Acid Level 2.2 mmol/L (0.4-2.0) Test 07/27/17 04:33 White Blood Count 14.3 x10^3/uL (4.0-11.0) Red Blood Count 5.51 x10^6/uL (4.30-5.70) Hemoglobin 15.6 g/dL (13.0-17.5) Hematocrit 47.5 % (39.0-53.0) Mean Corpuscular Volume 86 fL (79-100) Mean Corpuscular Hemoglobin 28 pg (25-35) Mean Corpuscular Hemoglobin Concent 33 g/dL (31-37) Red Cell Distribution Width 12.5 % (11.5-14.5) Platelet Count 264 x10^3/uL (140-400) Neutrophils (%) (Auto) 79 % (31-73) Lymphocytes (%) (Auto) 15 % (24-48) Monocytes (%) (Auto) 6 % (0-9) Eosinophils (%) (Auto) 0 % (0-3) Basophils (%) (Auto) 0 % (0-3) Neutrophils # (Auto) 11.3 x10^3uL (1.8-7.7) Lymphocytes # (Auto) 2.2 x10^3/uL (1.0-4.8) Monocytes # (Auto) 0.8 x10^3/uL (0.0-1.1) Eosinophils # (Auto) 0.0 x10^3/uL (0.0-0.7) Basophils # (Auto) 0.0 x10^3/uL (0.0-0.2) Sodium Level 140 mmol/L (136-145) Potassium Level 3.8 mmol/L (3.5-5.1) Chloride Level 102 mmol/L (98-107) Carbon Dioxide Level 23 mmol/L (21-32) Anion Gap 15 (6-14) Blood Urea Nitrogen 13 mg/dL (8-26) Creatinine 1.0 mg/dL (0.7-1.3) Estimated GFR (Cockcroft-Gault) 85.5 BUN/Creatinine Ratio 13 (6-20) Glucose Level 117 mg/dL (70-99) Lactic Acid Level 0.9 mmol/L (0.4-2.0) Calcium Level 8.4 mg/dL (8.5-10.1) Total Bilirubin 0.8 mg/dL (0.2-1.0) Aspartate Amino Transf (AST/SGOT) 26 U/L (15-37) Alanine Aminotransferase (ALT/SGPT) 51 U/L (16-63) Alkaline Phosphatase 67 U/L (46-116) Troponin I Quantitative < 0.017 ng/mL (0.000-0.055) Total Protein 7.8 g/dL (6.4-8.2) Albumin 3.9 g/dL (3.4-5.0) Albumin/Globulin Ratio 1.0 (1.0-1.7) Assessment/Plan Assessment/Plan abdominal epigastric pain, acute on chronic leukocytosis lactic improved HTN reviewed xray, suspect chronic findings US in past showed a small gallstone possible gastritis--omeprazole has helped in past will check CT abd/pelvis could consider hida scan GI following--? scope will d/w AMAURI Mancia APRN Jul 28, 2017 08:47
[2017-07-28] MEDS ORDERED: CONTRAST GIVEN MC PRN (09:15)
[2017-07-28] MEDS ORDERED: IOHEXOL 300 MG/ML 100ML VIAL. IV ONE (09:15)
[2017-07-28] MEDS ORDERED: IOHEXOL 240 MG/ML 50ML VIAL. PO ONE (09:15)
--- NOTE | 2017-07-28 10:28 | PDOC ---
PROGRESS NOTES Chief Complaint Chief Complaint SBO abdominal epigastric pain, acute on chronic, better leukocytosis, lactic improved HTN reviewed xray, suspect chronic findings US in past showed a small gallstone possible gastritis--omeprazole has helped in past History of Present Illness History of Present Illness Doing good, no nausea, emesis, no diarrhea Thinks he will be ready to take something now General surgery has ordered some CAT scan imaging to make sure before starting a diet Plan: CAT scan per general surgery Possibly right able to start by mouth soon Discussed with patient Vitals Vitals Vital Signs Date Time Temp Pulse Resp B/P (MAP) Pulse Ox O2 Delivery O2 Flow Rate FiO2 07/28/17 07:15 Room Air 07/28/17 07:00 96.6 66 18 122/80 (94) 96 96.6 07/28/17 06:55 2.0 Physical Exam General: Alert, Oriented X3, Cooperative, No acute distress Heart: Regular rate, Normal S1, Normal S2, No murmurs Lungs: Clear, Other Abdomen: Soft, No tenderness, Other (midline scar) Extremities: No clubbing, No cyanosis Skin: No rashes, No breakdown Review of Systems Review of Systems denies 14 point systems reviewed Assessment and Plan Assessmemt and Plan Problems Medical Problems: (1) Bacteria in urine Status: Acute (2) Small bowel obstruction Status: Acute (3) Vomiting Status: Acute Problems: Comment Review of Relevant I have reviewed the following items debra (where applicable) has been applied. Labs Laboratory Tests Test 07/26/17 21:05 07/26/17 21:50 07/26/17 22:28 07/27/17 01:10 White Blood Count 17.5 x10^3/uL (4.0-11.0) Red Blood Count 6.03 x10^6/uL (4.30-5.70) Hemoglobin 17.6 g/dL (13.0-17.5) Hematocrit 52.3 % (39.0-53.0) Mean Corpuscular Volume 87 fL (79-100) Mean Corpuscular Hemoglobin 29 pg (25-35) Mean Corpuscular Hemoglobin Concent 34 g/dL (31-37) Red Cell Distribution Width 12.5 % (11.5-14.5) Platelet Count 294 x10^3/uL (140-400) Sodium Level 134 mmol/L (136-145) Potassium Level 4.1 mmol/L (3.5-5.1) Chloride Level 97 mmol/L (98-107) Carbon Dioxide Level 19 mmol/L (21-32) Anion Gap 18 (6-14) Blood Urea Nitrogen 14 mg/dL (8-26) Creatinine 1.5 mg/dL (0.7-1.3) Estimated GFR (Cockcroft-Gault) 53.6 BUN/Creatinine Ratio 9 (6-20) Glucose Level 206 mg/dL (70-99) Calcium Level 9.2 mg/dL (8.5-10.1) Total Bilirubin 0.9 mg/dL (0.2-1.0) Aspartate Amino Transf (AST/SGOT) 32 U/L (15-37) Alanine Aminotransferase (ALT/SGPT) 62 U/L (16-63) Alkaline Phosphatase 84 U/L (46-116) Creatine Kinase 234 U/L (39-308) Troponin I Quantitative < 0.017 ng/mL (0.000-0.055) < 0.017 ng/mL (0.000-0.055) Total Protein 9.1 g/dL (6.4-8.2) Albumin 4.6 g/dL (3.4-5.0) Albumin/Globulin Ratio 1.0 (1.0-1.7) Lipase 99 U/L (73-393) Urine Collection Type Unknown Urine Color Karen Urine Clarity Clear Urine pH 5.5 Urine Specific [place] >=1.030 Urine Protein >=300 mg/dL (NEG-TRACE) Urine Glucose (UA) Negative mg/dL (NEG) Urine Ketones (Stick) Trace mg/dL (NEG) Urine Blood Negative (NEG) Urine Nitrite Negative (NEG) Urine Bilirubin Negative (NEG) Urine Urobilinogen Dipstick 0.2 mg/dL (0.2 mg/dL) Urine Leukocyte Esterase Negative (NEG) Urine RBC 6-10 /HPF (0-2) Urine WBC Tntc /HPF (0-4) Urine Squamous Epithelial Cells Few /LPF Urine Bacteria Many /HPF (0-FEW) Urine Mucus Marked /LPF Lactic Acid Level 2.2 mmol/L (0.4-2.0) Test 07/27/17 04:33 White Blood Count 14.3 x10^3/uL (4.0-11.0) Red Blood Count 5.51 x10^6/uL (4.30-5.70) Hemoglobin 15.6 g/dL (13.0-17.5) Hematocrit 47.5 % (39.0-53.0) Mean Corpuscular Volume 86 fL (79-100) Mean Corpuscular Hemoglobin 28 pg (25-35) Mean Corpuscular Hemoglobin Concent 33 g/dL (31-37) Red Cell Distribution Width 12.5 % (11.5-14.5) Platelet Count 264 x10^3/uL (140-400) Neutrophils (%) (Auto) 79 % (31-73) Lymphocytes (%) (Auto) 15 % (24-48) Monocytes (%) (Auto) 6 % (0-9) Eosinophils (%) (Auto) 0 % (0-3) Basophils (%) (Auto) 0 % (0-3) Neutrophils # (Auto) 11.3 x10^3uL (1.8-7.7) Lymphocytes # (Auto) 2.2 x10^3/uL (1.0-4.8) Monocytes # (Auto) 0.8 x10^3/uL (0.0-1.1) Eosinophils # (Auto) 0.0 x10^3/uL (0.0-0.7) Basophils # (Auto) 0.0 x10^3/uL (0.0-0.2) Sodium Level 140 mmol/L (136-145) Potassium Level 3.8 mmol/L (3.5-5.1) Chloride Level 102 mmol/L (98-107) Carbon Dioxide Level 23 mmol/L (21-32) Anion Gap 15 (6-14) Blood Urea Nitrogen 13 mg/dL (8-26) Creatinine 1.0 mg/dL (0.7-1.3) Estimated GFR (Cockcroft-Gault) 85.5 BUN/Creatinine Ratio 13 (6-20) Glucose Level 117 mg/dL (70-99) Lactic Acid Level 0.9 mmol/L (0.4-2.0) Calcium Level 8.4 mg/dL (8.5-10.1) Total Bilirubin 0.8 mg/dL (0.2-1.0) Aspartate Amino Transf (AST/SGOT) 26 U/L (15-37) Alanine Aminotransferase (ALT/SGPT) 51 U/L (16-63) Alkaline Phosphatase 67 U/L (46-116) Troponin I Quantitative < 0.017 ng/mL (0.000-0.055) Total Protein 7.8 g/dL (6.4-8.2) Albumin 3.9 g/dL (3.4-5.0) Albumin/Globulin Ratio 1.0 (1.0-1.7) Medications Current Medications Ondansetron HCl (Zofran) 4 mg 1X ONCE IV Last administered on 07/26/17 21:12 ; Start 07/26/17 at 21:00; Stop 07/26/17 at 21:02; Status DC Hydromorphone HCl (Dilaudid) 1 mg 1X ONCE IV Last administered on 07/26/17 21:12; Start 07/26/17 at 21:00; Stop 07/26/17 at 21:02; Status DC Sodium Chloride 1,000 ml @ 1,000 mls/hr 1X ONCE IV Last administered on 07/26 22:28; Start 07/26/17 at 22:30; Stop 07/26/17 at 23:29; Status DC Ceftriaxone Sodium 50 ml @ 100 mls/hr 1X ONCE IV Last administered on 23:36; Start 07/26/17 at 23:30; Stop 07/26/17 at 23:59; Status DC Fentanyl Citrate (Fentanyl 2ml Vial) 50 mcg 1X ONCE IV Last administered on 23:36; Start 07/26/17 at 23:30; Stop 07/26/17 at 23:31; Status DC Ondansetron HCl (Zofran) 4 mg PRN Q8HRS PRN IV NAUSEA/VOMITING Last administered on 07/27/17 23:03; Start 07/26/17 at 23:30; Stop 07/27/17 at 23 :29; Status DC Fentanyl Citrate (Fentanyl 2ml Vial) 50 mcg PRN Q2HR PRN IV SEVERE PAIN Last administered on 07/27/17 21:22; Start 07/26/17 at 23:30; Stop 07/27/17 at 23 :29; Status DC Acetaminophen (Tylenol) 650 mg PRN Q4HRS PRN PO FEVER; Start 07/26/17 at 23:30 ; Stop 07/27/17 at 23:29; Status DC Famotidine (Pepcid Vial) 20 mg BID IVP Last administered on 07/28/17 08:24; Start 07/27/17 at 10:00 Ceftriaxone Sodium 1 gm/ Dextrose 50 ml @ 100 mls/hr Q24H IV ; Start 07/27/17 at 20:30; Status UNV Metronidazole 100 ml @ 100 mls/hr Q6HRS IV Last administered on 07/28/17 06: 15; Start 07/27/17 at 21:00 Ceftriaxone Sodium (Rocephin) 1 gm Q24H IVP Last administered on 07/27/17 22: 57; Start 07/27/17 at 22:00 Lactobacillus Rhamnosus (Culturelle) 1 cap BID PO ; Start 07/27/17 at 21:00 Fentanyl Citrate (Fentanyl 2ml Vial) 50 mcg PRN Q2HR PRN IV PAIN Last administered on 07/28/17 06:24; Start 07/27/17 at 23:45 Iohexol (Omnipaque 240 Mg/ml) 30 ml 1X ONCE PO Last administered on 09:15; Start 07/28/17 at 09:15; Stop 07/28/17 at 09:16; Status DC Iohexol (Omnipaque 300 Mg/ml) 75 ml 1X ONCE IV Last administered on 10:13; Start 07/28/17 at 09:15; Stop 07/28/17 at 09:16; Status DC Info (Do NOT chart on this entry -- for MONITORING) 1 each PRN DAILY PRN MC SEE COMMENTS; Start 07/28/17 at 09:15; Stop 07/30/17 at 09:14 Active Scripts Active Aspirin Ec (Aspirin) 325 Mg Tablet. 1 Tab PO DAILY Reported Toprol Xl (Metoprolol Succinate) 25 Mg Tab.er.24h 1 Tab PO DAILY Flecainide Acetate 100 Mg Tablet 0.5 Tab PO BID Omeprazole 40 Mg Capsule. 1 Cap PO DAILY Vitals/I & O Vital Sign - Last 24 Hours 07/27/17 07/27/17 07/27/17 07/27/17 10:30 10:30 11:13 13:29 Temp 97.8 97.8 Pulse 80 Resp 16 B/P (MAP) 139/101 (114) Pulse Ox 95 O2 Delivery Room Air Room Air Room Air Room Air 07/27/17 07/27/17 07/27/17 07/27/17 15:00 16:57 19:00 19:10 Temp 98.4 97.7 98.4 97.7 Pulse 81 80 Resp 16 16 20 B/P (MAP) 134/90 (105) 141/100 (114) Pulse Ox 96 97 96 O2 Delivery Room Air Room Air Room Air Room Air 07/27/17 07/27/17 07/27/17 07/27/17 19:10 21:22 22:52 23:00 Temp 98.1 98.1 Pulse 76 Resp 20 20 16 B/P (MAP) 140/90 (107) Pulse Ox 96 96 100 O2 Delivery Room Air Room Air Nasal Cannula Room Air O2 Flow Rate 2.0 07/27/17 07/28/17 07/28/17 07/28/17 23:45 01:52 03:00 06:24 Temp 96.1 96.1 Pulse 69 Resp 20 20 16 20 B/P (MAP) 143/104 (117) Pulse Ox 96 96 94 94 O2 Delivery Room Air Room Air Room Air Nasal Cannula O2 Flow Rate 2.0 2.0 07/28/17 07/28/17 07/28/17 06:55 07:00 07:15 Temp 96.6 96.6 Pulse 66 Resp 20 18 B/P (MAP) 122/80 (94) Pulse Ox 94 96 O2 Delivery Nasal Cannula Room Air Room Air O2 Flow Rate 2.0 Intake and Output 07/27/17 07/27/17 07/28/17 15:00 23:00 07:00 Intake Total 100 ml Output Total 2 ml 2 ml Balance -2 ml 98 ml PAN SANON MD Jul 28, 2017 10:28
[2017-07-28 11:00] VITALS: BP 149/102
--- NOTE | 2017-07-28 11:35 | RAD ---
CT of the abdomen and pelvis with contrast, 07/28/2017: History: Abdominal pain Multidetector CT imaging was performed following oral and IV administration of contrast. There is minimal linear atelectasis or scarring in the right lung base. No hepatic mass or bile duct dilatation is seen. There is a small dense gallstone in the posterior aspect of the gallbladder. No pericholecystic cystic edema or gallbladder wall thickening is seen. The pancreas is unremarkable. The spleen is of normal size. No renal or adrenal abnormality is detected. No abdominal or pelvic adenopathy is detected. The aorta is unremarkable. The bowel loops are not dilated. The appendix is visualized and shows no abnormality. No free air or free fluid is evident in the abdomen or pelvis. IMPRESSION: 1. Cholelithiasis. 2. No acute abdominal or pelvic abnormality is detected. PQRS Compliance Statement: One or more of the following individualized dose reduction techniques were utilized for this examination: 1. Automated exposure control 2. Adjustment of the mA and/or kV according to patient size 3. Use of iterative reconstruction technique
--- NOTE | 2017-07-28 12:17 | PDOC ---
Subjective: Subjective: A little nausea when atbx pushed, otherwise feels much better. Objective: Objective: D/w Kylie, reviewed surg note. Vital Signs: Vital Signs Date Time Temp Pulse Resp B/P (MAP) Pulse Ox O2 Delivery O2 Flow Rate FiO2 07/28/17 07:15 Room Air 07/28/17 07:00 96.6 66 18 122/80 (94) 96 96.6 07/28/17 06:55 2.0 Imaging: CT A/P IMPRESSION: 1. Cholelithiasis. 2. No acute abdominal or pelvic abnormality is detected. PE: GEN: NAD LUNGS: CTAB HEART: RRR ABD: NABS, S/ND/NT NEURO/PSYCH: A & O 3 A/P: Recurrent upper abd pain - resolved Cholelithiasis Heartburn - intermittent symptoms, always associated w/ upper abd pain -- Surgery following, CT unrevealing except for gallstones, ?HIDA Feels better - okay per GI to [facility], will defer to surgery. 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 Will review any additional recs w/ Dr. Das. JAYLAN JOHN Jul 28, 2017 12:17
--- NOTE | 2017-07-28 19:02 | PDOC3 ---
Discharge Summary Visit Information Date of Admission: Jul 27, 2017 Date of Discharge: Jul 28, 2017 Admitting Diagnosis Comment: SBO abdominal epigastric pain, acute on chronic, better leukocytosis, lactic improved HTN reviewed xray, suspect chronic findings US in past showed a small gallstone possible gastritis--omeprazole has helped in past Final Diagnosis Problems Medical Problems: (1) Bacteria in urine Status: Acute (2) Small bowel obstruction Status: Acute (3) Vomiting Status: Acute Brief Hospital Course Allergies Allergies Coded Allergies Type Severity Reaction Last Updated Verified No Known Drug Allergies 09/18/15 No Vital Signs Vital Signs Date Time Temp Pulse Resp B/P (MAP) Pulse Ox O2 Delivery O2 Flow Rate FiO2 07/28/17 13:15 Room Air 07/28/17 11:00 97.9 74 18 149/102 (118) 94 97.9 07/28/17 06:55 2.0 Lab Results Laboratory Tests Test 07/26/17 21:05 07/26/17 21:50 07/26/17 22:28 07/27/17 01:10 White Blood Count 17.5 x10^3/uL (4.0-11.0) Red Blood Count 6.03 x10^6/uL (4.30-5.70) Hemoglobin 17.6 g/dL (13.0-17.5) Hematocrit 52.3 % (39.0-53.0) Mean Corpuscular Volume 87 fL (79-100) Mean Corpuscular Hemoglobin 29 pg (25-35) Mean Corpuscular Hemoglobin Concent 34 g/dL (31-37) Red Cell Distribution Width 12.5 % (11.5-14.5) Platelet Count 294 x10^3/uL (140-400) Sodium Level 134 mmol/L (136-145) Potassium Level 4.1 mmol/L (3.5-5.1) Chloride Level 97 mmol/L (98-107) Carbon Dioxide Level 19 mmol/L (21-32) Anion Gap 18 (6-14) Blood Urea Nitrogen 14 mg/dL (8-26) Creatinine 1.5 mg/dL (0.7-1.3) Estimated GFR (Cockcroft-Gault) 53.6 BUN/Creatinine Ratio 9 (6-20) Glucose Level 206 mg/dL (70-99) Calcium Level 9.2 mg/dL (8.5-10.1) Total Bilirubin 0.9 mg/dL (0.2-1.0) Aspartate Amino Transf (AST/SGOT) 32 U/L (15-37) Alanine Aminotransferase (ALT/SGPT) 62 U/L (16-63) Alkaline Phosphatase 84 U/L (46-116) Creatine Kinase 234 U/L (39-308) Troponin I Quantitative < 0.017 ng/mL (0.000-0.055) < 0.017 ng/mL (0.000-0.055) Total Protein 9.1 g/dL (6.4-8.2) Albumin 4.6 g/dL (3.4-5.0) Albumin/Globulin Ratio 1.0 (1.0-1.7) Lipase 99 U/L (73-393) Urine Collection Type Unknown Urine Color Karen Urine Clarity Clear Urine pH 5.5 Urine Specific [place] >=1.030 Urine Protein >=300 mg/dL (NEG-TRACE) Urine Glucose (UA) Negative mg/dL (NEG) Urine Ketones (Stick) Trace mg/dL (NEG) Urine Blood Negative (NEG) Urine Nitrite Negative (NEG) Urine Bilirubin Negative (NEG) Urine Urobilinogen Dipstick 0.2 mg/dL (0.2 mg/dL) Urine Leukocyte Esterase Negative (NEG) Urine RBC 6-10 /HPF (0-2) Urine WBC Tntc /HPF (0-4) Urine Squamous Epithelial Cells Few /LPF Urine Bacteria Many /HPF (0-FEW) Urine Mucus Marked /LPF Lactic Acid Level 2.2 mmol/L (0.4-2.0) Test 07/27/17 04:33 White Blood Count 14.3 x10^3/uL (4.0-11.0) Red Blood Count 5.51 x10^6/uL (4.30-5.70) Hemoglobin 15.6 g/dL (13.0-17.5) Hematocrit 47.5 % (39.0-53.0) Mean Corpuscular Volume 86 fL (79-100) Mean Corpuscular Hemoglobin 28 pg (25-35) Mean Corpuscular Hemoglobin Concent 33 g/dL (31-37) Red Cell Distribution Width 12.5 % (11.5-14.5) Platelet Count 264 x10^3/uL (140-400) Neutrophils (%) (Auto) 79 % (31-73) Lymphocytes (%) (Auto) 15 % (24-48) Monocytes (%) (Auto) 6 % (0-9) Eosinophils (%) (Auto) 0 % (0-3) Basophils (%) (Auto) 0 % (0-3) Neutrophils # (Auto) 11.3 x10^3uL (1.8-7.7) Lymphocytes # (Auto) 2.2 x10^3/uL (1.0-4.8) Monocytes # (Auto) 0.8 x10^3/uL (0.0-1.1) Eosinophils # (Auto) 0.0 x10^3/uL (0.0-0.7) Basophils # (Auto) 0.0 x10^3/uL (0.0-0.2) Sodium Level 140 mmol/L (136-145) Potassium Level 3.8 mmol/L (3.5-5.1) Chloride Level 102 mmol/L (98-107) Carbon Dioxide Level 23 mmol/L (21-32) Anion Gap 15 (6-14) Blood Urea Nitrogen 13 mg/dL (8-26) Creatinine 1.0 mg/dL (0.7-1.3) Estimated GFR (Cockcroft-Gault) 85.5 BUN/Creatinine Ratio 13 (6-20) Glucose Level 117 mg/dL (70-99) Lactic Acid Level 0.9 mmol/L (0.4-2.0) Calcium Level 8.4 mg/dL (8.5-10.1) Total Bilirubin 0.8 mg/dL (0.2-1.0) Aspartate Amino Transf (AST/SGOT) 26 U/L (15-37) Alanine Aminotransferase (ALT/SGPT) 51 U/L (16-63) Alkaline Phosphatase 67 U/L (46-116) Troponin I Quantitative < 0.017 ng/mL (0.000-0.055) Total Protein 7.8 g/dL (6.4-8.2) Albumin 3.9 g/dL (3.4-5.0) Albumin/Globulin Ratio 1.0 (1.0-1.7) Brief Hospital Course Mr. Berman is a 32 old male but has fluent uzbek, admittted overnight for initial thoughts of sbo, but now overnight better- possibly just viral AGE. Co managed with GI and GS. Imaging on dc shows no acute pathology ABle to tolerate pO fine, 2 notes, today, seen and examined Discharge Information Condition at Discharge: Improved, Stable Disposition/Orders: D/C to Home Scheduled Aspirin (Aspirin Ec), 1 TAB PO DAILY Flecainide Acetate (Flecainide Acetate), 0.5 TAB PO BID, (Reported) Metoprolol Succinate (Toprol Xl), 1 TAB PO DAILY, (Reported) Omeprazole (Omeprazole), 1 CAP PO DAILY, (Reported) PAN SANON MD Jul 28, 2017 19:02
== END 2017-07-28 17:00 | disposition home or self-care (01) | DRG 871 ==
LOC: ER 20:45 → ED HOLD 23:10 → 4 NORTH 07-27 10:25
PROVIDERS: ADMIT Internal Medicine Hematology & Oncology; ATTEND Internal Medicine Hematology & Oncology
DX: A41.9 Sepsis, unspecified organism (principal); N17.0 Acute kidney failure with tubular necrosis; K56.609 Unspecified intestinal obstruction, unspecified as to partial versus complete obstruction; A08.4 Viral intestinal infection, unspecified; I48.91 Unspecified atrial fibrillation; R82.71 Bacteriuria; E78.00 Pure hypercholesterolemia, unspecified; I10 Essential (primary) hypertension; E78.5 Hyperlipidemia, unspecified; K57.90 Diverticulosis of intestine, part unspecified, without perforation or abscess without bleeding; F12.90 Cannabis use, unspecified, uncomplicated; D72.829 Elevated white blood cell count, unspecified; K21.9 Gastro-esophageal reflux disease without esophagitis; G89.29 Other chronic pain; Z82.49 Family history of ischemic heart disease and other diseases of the circulatory system
CPT/HCPCS: 36415; 74022; 74177; 80053; 81001; 82550; 83605; 83690; 84484; 85025; 85027; 93005; 96365; 96375; J0690; J0696; J1170; J2405; J3010; J3490; J7030; Q9966; Q9967; S0028; 99285-25